=== PATIENT | female | born 1975 | race Caucasian/White ===

== ENCOUNTER 2018-05-21 19:03 | Emergency (ER) | payer MEDICARE, OTHER ==
[~2018-05-21] VITALS: Ht 167.6 cm; Wt 75.0 kg
[~2018-05-21 19:03] MED LIST: CLOZ100 PO; GLYC1TAB11 PO
[2018-05-21] MEDS ORDERED: DiphenhydrAMINE HCL 50 MG/ML VIAL IVP ONE (19:30)
[2018-05-21] MEDS ORDERED: MethylPREDNISolone SOD SUCC 125 MG/2 ML VIAL IVP ONE (19:30)
[2018-05-21] MEDS ORDERED: LORA2TAB2 PO (19:31)
[2018-05-21] MEDS ORDERED: ONDA4 PO (19:31)
[2018-05-21] MEDS ORDERED: HALO5TAB2 PO (19:31)
[2018-05-21] MEDS ORDERED: ALBU8HFA IH (19:31)
[2018-05-21] MEDS ORDERED: RISP2TAB22 PO (19:31)
[2018-05-21] MEDS ORDERED: IBUP-1506 PO (19:31)
[2018-05-21] MEDS ORDERED: LOPE2 PO (19:31)
[2018-05-21] MEDS ORDERED: ZOLP10TA7 PO (19:31)
[2018-05-21] MEDS ORDERED: nicotine TD (19:31)
[2018-05-21] MEDS ORDERED: DSS100 PO (19:31)
[2018-05-21] MEDS ORDERED: ACET-2247 PO (19:31)
[2018-05-21] MEDS ORDERED: CLON0.1T PO (19:31)
[2018-05-21] MEDS ORDERED: MAG30ORA11 PO (19:31)
[2018-05-21] MEDS ORDERED: GUAIF10 PO (19:31)
[2018-05-21 19:49] LABS: BASOPHILS % (AUTO) 0.4 % (0.0-2.0); EOSINOPHILS % (AUTO) 0.4 % (1.0-6.0); HEMOGLOBIN 14.1 g/dL (12.0-16.0); LYMPHOCYTES % (AUTO) 13.3 % (22.0-44.0); MEAN CORPUSCULAR HEMOGLOBIN 29.6 pg (26.0-34.0); MEAN CORPUSCULAR HGB CONC 34.5 G/dL (31.0-37.0); MEAN CORPUSCULAR VOLUME 86 fL (80-100); MONOCYTES # (AUTO) 0.7 K/uL (0.1-1.0); MONOCYTES % (AUTO) 4.9 % (2.0-9.0); NEUTROPHILS # (AUTO) 11.9 K/uL (1.8-7.7); PLATELET COUNT (AUTO) 231 K/uL (150-450); RED BLOOD CELL COUNT(AUTO) 4.78 MIL/uL (4.00-5.20); RED CELL DISTRIBUTION WIDTH 14.1 % (11.5-14.5)
[2018-05-21 19:59] LABS: ANION GAP 9 mmol/L (8-16); CALCIUM, TOTAL 9.3 mg/dL (8.8-10.5); CARBON DIOXIDE 25 mmol/L (22-29); CHLORIDE 102 mmol/L (98-107); CREATININE 0.76 mg/dL (0.60-1.30); GLOMERULAR FILTR. RATE CALC > 60 mL/min (>60); GLUCOSE,RANDOM 136 mg/dL (70-110); SODIUM SERUM 136 mmol/L (136-145); UREA NITROGEN, BLOOD 13 mg/dL (7-18)
[2018-05-21 20:05] LABS: ALANINE AMINOTRANSFERASE 18 U/L (12-78); ALBUMIN 3.4 g/dL (3.4-5.0); ALKALINE PHOSPHATASE 126 U/L (46-116); ASPARTATE AMINOTRANSFERASE 18 U/L (15-37); BILIRUBIN,TOTAL 0.3 mg/dL (0.1-1.0)
[2018-05-21] MEDS ORDERED: FAMOTIDINE 40 MG in SODIUM CHLORIDE 0.9% 100 ML IV ONE (20:15)
[2018-05-21] MEDS ORDERED: DiphenhydrAMINE HCL 25 MG CAPSULE PO ONE (22:00)
[2018-05-21 22:15] VITALS: BP 148/84
[2018-05-26] MEDS ORDERED: ARIP10TA8 PO (10:38)
[2018-05-26] MEDS ORDERED: SIMV-259 PO (10:40)
== END 2018-05-21 22:51 | disposition home or self-care (01) ==
LOC: EMS 19:05
DX: T78.3XXA Angioneurotic edema, initial encounter (principal); T43.595A Adverse effect of other antipsychotics and neuroleptics, initial encounter; T43.4X5A Adverse effect of butyrophenone and thiothixene neuroleptics, initial encounter; J45.909 Unspecified asthma, uncomplicated; F32.9 Major depressive disorder, single episode, unspecified; F20.9 Schizophrenia, unspecified; Z88.0 Allergy status to penicillin; Z88.2 Allergy status to sulfonamides; Z88.5 Allergy status to narcotic agent; Z79.899 Other long term (current) drug therapy; Y92.89 Other specified places as the place of occurrence of the external cause
CPT/HCPCS: 36415; 80053; 85025; 96365; 96375; 99285; J1200; J2930; J3490; J7050

== ENCOUNTER 2018-05-31 11:57 | Inpatient (IN) | payer MEDICARE, MEDICAID ==
[~2018-05-31] VITALS: Ht 157.5 cm; Wt 79.0 kg
[~2018-05-31 11:57] MED LIST changes: +ARIP10TA8 PO; -CLOZ100 PO; -GLYC1TAB11 PO; +SIMV-259 PO
[2018-05-31 12:15] LABS: GLUCOSE,POINT OF CARE 138 MG/DL (70-110)
[2018-05-31 13:43] LABS: EOSINOPHILS % (AUTO) 0.6 % (1.0-6.0); HEMOGLOBIN 13.3 g/dL (12.0-16.0); LYMPHOCYTES % (AUTO) 28.5 % (22.0-44.0); MEAN CORPUSCULAR HEMOGLOBIN 29.9 pg (26.0-34.0); MEAN CORPUSCULAR HGB CONC 34.1 G/dL (31.0-37.0); MEAN CORPUSCULAR VOLUME 88 fL (80-100); MONOCYTES # (AUTO) 0.9 K/uL (0.1-1.0); MONOCYTES % (AUTO) 8.6 % (2.0-9.0); NEUTROPHILS # (AUTO) 6.4 K/uL (1.8-7.7); NEUTROPHILS % (AUTO) 61.3 % (40.0-70.0); PLATELET COUNT (AUTO) 304 K/uL (150-450); RED BLOOD CELL COUNT(AUTO) 4.44 MIL/uL (4.00-5.20); RED CELL DISTRIBUTION WIDTH 14.4 % (11.5-14.5)
[2018-05-31 13:44] LABS: APPEARANCE,URINE CLEAR (CLEAR); BILIRUBIN,URINE NEGATIVE (NEGATIVE); GLUCOSE, URINE (UA) NEGATIVE (NEGATIVE); KETONES,URINE NEGATIVE (NEGATIVE); LEUKOCYTE ESTERASE ,URINE NEGATIVE (NEGATIVE); NITRATE,URINE NEGATIVE (NEGATIVE); OCCULT BLOOD,URINE SMALL (NEGATIVE); PH,URINE 5.5 (5.0-8.0); PROTEIN,URINE NEGATIVE (NEGATIVE); UROBILINOGEN,URINE 0.2 mg/dL (<=1.0)
[2018-05-31 13:50] LABS: AMPHET/METH SCREEN,URINE NEGATIVE (NEGATIVE); BARBITURATE SCREEN, URINE NEGATIVE (NEGATIVE); BENZODIAZEPINES SCREEN,URINE NEGATIVE (NEGATIVE); CANNABINOID SCREEN,URINE NEGATIVE (NEGATIVE); COCAINE SCREEN,URINE NEGATIVE (NEGATIVE); METHADONE SCREEN, URINE NEGATIVE (NEGATIVE); OPIATE SCREEN,URINE NEGATIVE (NEGATIVE)
[2018-05-31 13:56] LABS: BACTERIA,URINE None Seen /HPF (None Seen); PHENCYCLIDINE SCREEN,URINE NEGATIVE (NEGATIVE); SQUAMOUS EPITHELIAL CELL,UR Rare /LPF (None Seen); WBC,URINE None Seen /HPF (0-5)
[2018-05-31 13:59] LABS: ANION GAP 10 mmol/L (8-16); CALCIUM, TOTAL 9.1 mg/dL (8.8-10.5); CARBON DIOXIDE 25 mmol/L (22-29); CHLORIDE 107 mmol/L (98-107); CREATININE 0.54 mg/dL (0.60-1.30); GLOMERULAR FILTR. RATE CALC > 60 mL/min (>60); GLUCOSE,RANDOM 80 mg/dL (70-110); POTASSIUM 3.4 mmol/L (3.5-5.1); SODIUM SERUM 142 mmol/L (136-145); UREA NITROGEN, BLOOD 14 mg/dL (7-18)
[2018-05-31 14:12] LABS: ACETAMINOPHEN < 2 mcg/mL (10-30); ALANINE AMINOTRANSFERASE 19 U/L (12-78); ALBUMIN 3.5 g/dL (3.4-5.0); ALKALINE PHOSPHATASE 113 U/L (46-116); ASPARTATE AMINOTRANSFERASE 16 U/L (15-37); BILIRUBIN,TOTAL 0.2 mg/dL (0.1-1.0); HCG,QUANTITATIVE 8 mIU/mL (0-6); TOTAL PROTEIN, SERUM 7.8 g/dL (6.4-8.2)
[2018-05-31] MEDS ORDERED: LORazepam 2 MG TABLET PO PRN (15:15)
[2018-05-31] MEDS ORDERED: HALOPERIDOL 5 MG TABLET PO PRN (15:15)
[2018-05-31] MEDS ORDERED: ZOLPIDEM TARTRATE 10 MG TABLET PO PRN (15:15)
[2018-05-31] MEDS ORDERED: QUEtiapine FUMARATE 100 MG TABLET PO PRN (16:15)
[2018-05-31] MEDS ORDERED: ACETAMINOPHEN 325 MG TABLET PO ONE (16:30)
[2018-05-31] MEDS: LORazepam 2 MG TABLET PO PRN (16:37)
[2018-05-31 20:45] VITALS: BP 126/90
[2018-05-31] MEDS ORDERED: PNEUMOCOCCAL VACCINE POLYVALENT 0.5 ML VIAL [PPSV23] IM ONE (21:00)
[2018-06-01 05:05] VITALS: BP 123/95
[2018-06-01] MEDS: LORazepam 2 MG TABLET PO PRN ×2 (05:10→13:36)
[2018-06-01 08:18] VITALS: BP 125/88
[2018-06-01] MEDS ORDERED: PROMETHAZINE HCL 25 MG TABLET PO PRN (12:45)
[2018-06-01] MEDS ORDERED: MAG HYDROX/AL HYDROX/SIMETH ES 30 ML SUSPENSION UDCUP PO PRN (12:45)
[2018-06-01] MEDS ORDERED: MAGNESIUM HYDROXIDE SUSPENSION 30 ML UDCUP PO PRN (12:45)
[2018-06-01] MEDS ORDERED: LOPERAMIDE HCL 2 MG CAPSULE PO PRN (12:45)
[2018-06-01] MEDS ORDERED: HydrOXYzine PAMOATE 50 MG CAPSULE PO PRN (12:45)
[2018-06-01 13:37] VITALS: BP 122/84
[2018-06-01] MEDS: ACETAMINOPHEN 325 MG TABLET PO PRN (13:37)
[2018-06-01] MEDS ORDERED: TUBERCULIN, PURIFIED PROTEIN DERIVATIVE 5 TU/0.1 ML SYG ID ONE (14:45)
[2018-06-01 16:09] VITALS: BP 124/89
[2018-06-01] MEDS: THIAMINE HCL 100 MG TABLET PO SCH (16:31)
[2018-06-01] MEDS: DIVALPROEX SODIUM 500 MG ER TABLET PO SCH (21:01)
[2018-06-02 00:03] VITALS: BP 122/87
[2018-06-02] MEDS: LORazepam 2 MG TABLET PO PRN (00:06)
[2018-06-02] MEDS: ACETAMINOPHEN 325 MG TABLET PO PRN ×2 (00:07→18:15)
[2018-06-02] MEDS: FOLIC ACID 1 MG TABLET PO SCH (08:19)
[2018-06-02] MEDS: THIAMINE HCL 100 MG TABLET PO SCH ×2 (08:19→16:41)
[2018-06-02] MEDS: MULTIVITAMINS WITH MINERALS, THERAPEUTIC TABLET PO SCH (08:19)
[2018-06-02] MEDS: ARIPiprazole 10 MG TABLET PO SCH (08:19)
[2018-06-02 08:27] VITALS: BP 122/86
[2018-06-02 09:33] LABS: HEMOGLOBIN A1C 5.5 % (4.5-6.2)
[2018-06-02 10:06] LABS: FREE T4 (FREE THYROXINE) 1.46 ng/dL (0.76-1.46); HCG,QUANTITATIVE < 1 mIU/mL (0-6); POTASSIUM 3.7 mmol/L (3.5-5.1); THYROID STIMULATING HORMONE 1.38 uIU/mL (0.36-3.74)
[2018-06-02] MEDS: AZITHROMYCIN 250 MG TABLET PO SCH (10:54)
[2018-06-02 16:14] VITALS: BP 125/94
[2018-06-02] MEDS: GABAPENTIN 100 MG CAPSULE PO SCH (16:54)
[2018-06-02] MEDS: DIVALPROEX SODIUM 500 MG ER TABLET PO SCH (20:34)
[2018-06-03 00:01] VITALS: BP 111/77
[2018-06-03] MEDS: LORazepam 2 MG TABLET PO PRN ×3 (00:12→11:49)
[2018-06-03] MEDS: ZOLPIDEM TARTRATE 10 MG TABLET PO PRN (03:13)
[2018-06-03] MEDS: ACETAMINOPHEN 325 MG TABLET PO PRN ×2 (05:44→16:01)
[2018-06-03 05:47] VITALS: BP 108/89
[2018-06-03] MEDS: AZITHROMYCIN 250 MG TABLET PO SCH (08:15)
[2018-06-03] MEDS: GABAPENTIN 100 MG CAPSULE PO SCH ×3 (08:15→16:35)
[2018-06-03] MEDS: FOLIC ACID 1 MG TABLET PO SCH (08:15)
[2018-06-03] MEDS: THIAMINE HCL 100 MG TABLET PO SCH ×2 (08:15→16:35)
[2018-06-03] MEDS: MULTIVITAMINS WITH MINERALS, THERAPEUTIC TABLET PO SCH (08:15)
[2018-06-03] MEDS: ARIPiprazole 10 MG TABLET PO SCH (08:15)
[2018-06-03 08:18] VITALS: BP 116/70
[2018-06-03 16:21] VITALS: BP 121/86
[2018-06-03] MEDS: NICOTINE 21 MG/24 HOUR PATCH TD SCH (17:00)
[2018-06-03] MEDS: DIVALPROEX SODIUM 500 MG ER TABLET PO SCH (20:44)
[2018-06-04 00:33] VITALS: BP 118/74
[2018-06-04] MEDS: LORazepam 2 MG TABLET PO PRN (01:17)
[2018-06-04] MEDS: MULTIVITAMINS WITH MINERALS, THERAPEUTIC TABLET PO SCH (08:10)
[2018-06-04] MEDS: ARIPiprazole 10 MG TABLET PO SCH (08:10)
[2018-06-04] MEDS: FOLIC ACID 1 MG TABLET PO SCH (08:10)
[2018-06-04] MEDS: NICOTINE 21 MG/24 HOUR PATCH TD SCH (08:10)
[2018-06-04] MEDS: AZITHROMYCIN 250 MG TABLET PO SCH (08:10)
[2018-06-04] MEDS: THIAMINE HCL 100 MG TABLET PO SCH ×2 (08:10→16:48)
[2018-06-04] MEDS: GABAPENTIN 100 MG CAPSULE PO SCH ×3 (08:10→16:48)
[2018-06-04 08:45] VITALS: BP 116/79
[2018-06-04 16:19] VITALS: BP 114/86
[2018-06-04] MEDS: DIVALPROEX SODIUM 500 MG ER TABLET PO SCH (20:40)
[2018-06-04] MEDS: ZOLPIDEM TARTRATE 10 MG TABLET PO PRN (22:17)
[2018-06-05] MEDS: ACETAMINOPHEN 325 MG TABLET PO PRN (01:34)
[2018-06-05] MEDS: LORazepam 2 MG TABLET PO PRN (01:34)
[2018-06-05 03:11] VITALS: BP 118/78
[2018-06-05] MEDS: GABAPENTIN 100 MG CAPSULE PO SCH ×3 (08:15→16:14)
[2018-06-05] MEDS: AZITHROMYCIN 250 MG TABLET PO SCH (08:15)
[2018-06-05] MEDS: MULTIVITAMINS WITH MINERALS, THERAPEUTIC TABLET PO SCH (08:15)
[2018-06-05] MEDS: FOLIC ACID 1 MG TABLET PO SCH (08:15)
[2018-06-05] MEDS: THIAMINE HCL 100 MG TABLET PO SCH ×2 (08:15→16:14)
[2018-06-05 08:16] VITALS: BP 125/75
[2018-06-05] MEDS: ARIPiprazole 10 MG TABLET PO SCH (08:16)
[2018-06-05] MEDS: NICOTINE 21 MG/24 HOUR PATCH TD SCH (08:18)
[2018-06-05 16:07] VITALS: BP 117/90
[2018-06-05] MEDS: DIVALPROEX SODIUM 500 MG ER TABLET PO SCH (20:10)
[2018-06-06 02:00] VITALS: BP 118/88
[2018-06-06] MEDS: ACETAMINOPHEN 325 MG TABLET PO PRN (02:04)
[2018-06-06 05:55] VITALS: BP 122/86
[2018-06-06] MEDS: THIAMINE HCL 100 MG TABLET PO SCH ×2 (08:10→16:40)
[2018-06-06] MEDS: NICOTINE 21 MG/24 HOUR PATCH TD SCH (08:10)
[2018-06-06] MEDS: ARIPiprazole 10 MG TABLET PO SCH (08:10)
[2018-06-06] MEDS: AZITHROMYCIN 250 MG TABLET PO SCH (08:10)
[2018-06-06] MEDS: MULTIVITAMINS WITH MINERALS, THERAPEUTIC TABLET PO SCH (08:10)
[2018-06-06] MEDS: FOLIC ACID 1 MG TABLET PO SCH (08:10)
[2018-06-06] MEDS: GABAPENTIN 100 MG CAPSULE PO SCH ×3 (08:10→16:40)
[2018-06-06 08:22] VITALS: BP 117/77
[2018-06-06] MEDS: GuaiFENesin/D-METHORPHAN [SUGAR-FREE] 200-20MG/10 ML SYRUP UDCUP PO PRN (08:31)
[2018-06-06 16:26] VITALS: BP 140/84
[2018-06-06] MEDS: DIVALPROEX SODIUM 500 MG ER TABLET PO SCH (20:41)
[2018-06-06] MEDS: ZOLPIDEM TARTRATE 10 MG TABLET PO PRN (23:56)
[2018-06-07 00:20] VITALS: BP 118/90
[2018-06-07] MEDS: ACETAMINOPHEN 325 MG TABLET PO PRN ×2 (00:20→07:02)
[2018-06-07] MEDS: LORazepam 2 MG TABLET PO PRN (03:54)
[2018-06-07 08:33] VITALS: BP 122/85
[2018-06-07] MEDS: FOLIC ACID 1 MG TABLET PO SCH (08:52)
[2018-06-07] MEDS: ARIPiprazole 15 MG TABLET PO SCH (08:52)
[2018-06-07] MEDS: MULTIVITAMINS WITH MINERALS, THERAPEUTIC TABLET PO SCH (08:52)
[2018-06-07] MEDS: THIAMINE HCL 100 MG TABLET PO SCH ×2 (08:52→16:42)
[2018-06-07] MEDS: NICOTINE 21 MG/24 HOUR PATCH TD SCH (08:54)
[2018-06-07] MEDS: GABAPENTIN 100 MG CAPSULE PO SCH ×3 (09:24→16:45)
[2018-06-07 16:29] VITALS: BP 108/78
[2018-06-07] MEDS: DIVALPROEX SODIUM 500 MG ER TABLET PO SCH (20:40)
[2018-06-08 00:30] VITALS: BP 110/80
[2018-06-08] MEDS: ZOLPIDEM TARTRATE 10 MG TABLET PO PRN (03:07)
[2018-06-08 06:58] VITALS: BP 112/83
[2018-06-08] MEDS: ACETAMINOPHEN 325 MG TABLET PO PRN (06:58)
[2018-06-08] MEDS: THIAMINE HCL 100 MG TABLET PO SCH ×2 (08:36→16:31)
[2018-06-08] MEDS: ARIPiprazole 15 MG TABLET PO SCH (08:36)
[2018-06-08] MEDS: MULTIVITAMINS WITH MINERALS, THERAPEUTIC TABLET PO SCH (08:36)
[2018-06-08] MEDS: GABAPENTIN 100 MG CAPSULE PO SCH ×3 (08:36→16:32)
[2018-06-08] MEDS: FOLIC ACID 1 MG TABLET PO SCH (08:36)
[2018-06-08] MEDS: NICOTINE 21 MG/24 HOUR PATCH TD SCH (08:38)
[2018-06-08 08:44] VITALS: BP 119/75
[2018-06-08] MEDS: LORazepam 2 MG TABLET PO PRN (10:27)
[2018-06-08 16:17] VITALS: BP 117/77
[2018-06-08] MEDS: DIVALPROEX SODIUM 500 MG ER TABLET PO SCH (20:32)
[2018-06-09 00:20] VITALS: BP 120/90
[2018-06-09] MEDS: ACETAMINOPHEN 325 MG TABLET PO PRN ×2 (00:53→05:24)
[2018-06-09] MEDS: ZOLPIDEM TARTRATE 10 MG TABLET PO PRN (01:26)
[2018-06-09] MEDS: GABAPENTIN 100 MG CAPSULE PO SCH ×3 (08:22→16:29)
[2018-06-09] MEDS: ARIPiprazole 15 MG TABLET PO SCH (08:22)
[2018-06-09] MEDS: THIAMINE HCL 100 MG TABLET PO SCH ×2 (08:22→16:30)
[2018-06-09] MEDS: FOLIC ACID 1 MG TABLET PO SCH (08:22)
[2018-06-09] MEDS: MULTIVITAMINS WITH MINERALS, THERAPEUTIC TABLET PO SCH (08:22)
[2018-06-09] MEDS: NICOTINE 21 MG/24 HOUR PATCH TD SCH (08:23)
[2018-06-09] MEDS: LORazepam 2 MG TABLET PO PRN ×2 (08:23→16:43)
[2018-06-09 08:25] LABS: BAND NEUTROPHILS % (MANUAL) 0 % (0-5)
[2018-06-09 08:33] VITALS: BP 113/75
[2018-06-09 08:46] LABS: HEMOGLOBIN 13.3 g/dL (12.0-16.0); MEAN CORPUSCULAR HEMOGLOBIN 29.7 pg (26.0-34.0); MEAN CORPUSCULAR VOLUME 87 fL (80-100); PLATELET COUNT (AUTO) 259 K/uL (150-450); RED BLOOD CELL COUNT(AUTO) 4.47 MIL/uL (4.00-5.20); RED CELL DISTRIBUTION WIDTH 14.1 % (11.5-14.5)
[2018-06-09 09:07] LABS: % IRON SATURATION 14.7 % (22-44); IRON, SERUM 53 mcg/dL (50-175); TOTAL IRON BINDING CAPACITY 359 mcg/dL (250-450)
[2018-06-09 09:09] LABS: VALPROIC ACID 60 mcg/mL (50-100)
[2018-06-09 09:14] LABS: ANION GAP 7 mmol/L (8-16); CALCIUM, TOTAL 8.9 mg/dL (8.8-10.5); CARBON DIOXIDE 29 mmol/L (22-29); CHLORIDE 101 mmol/L (98-107); CREATININE 0.75 mg/dL (0.60-1.30); GLOMERULAR FILTR. RATE CALC > 60 mL/min (>60); GLUCOSE,RANDOM 108 mg/dL (70-110); PHOSPHORUS 3.6 mg/dL (2.5-4.9); POTASSIUM 4.3 mmol/L (3.5-5.1); SODIUM SERUM 137 mmol/L (136-145); UREA NITROGEN, BLOOD 19 mg/dL (7-18)
[2018-06-09 09:46] LABS: LYMPHOCYTES % (MANUAL) 48 % (22-44); MONOCYTES % (MANUAL) 13 % (2-9); SEGMENTED NEUTROPHILS % 39 % (40-70)
[2018-06-09] MEDS ORDERED: DIVA500T52 PO (12:34)
[2018-06-09] MEDS ORDERED: ARIP15TA2 PO (12:34)
[2018-06-09] MEDS ORDERED: GABA-529 PO (12:34)
[2018-06-09 16:21] VITALS: BP 117/84
[2018-06-09] MEDS: DIVALPROEX SODIUM 500 MG ER TABLET PO SCH (20:16)
[2018-06-10] VITALS: BP 116/76
[2018-06-10] MEDS: ACETAMINOPHEN 325 MG TABLET PO PRN ×2 (00:05→08:03)
[2018-06-10] MEDS: LORazepam 2 MG TABLET PO PRN ×3 (00:05→16:14)
[2018-06-10 08:02] VITALS: BP 106/78
[2018-06-10] MEDS: THIAMINE HCL 100 MG TABLET PO SCH ×2 (08:02→16:14)
[2018-06-10] MEDS: GABAPENTIN 100 MG CAPSULE PO SCH ×3 (08:02→16:14)
[2018-06-10] MEDS: FOLIC ACID 1 MG TABLET PO SCH (08:03)
[2018-06-10] MEDS: NICOTINE 21 MG/24 HOUR PATCH TD SCH (08:03)
[2018-06-10] MEDS: MULTIVITAMINS WITH MINERALS, THERAPEUTIC TABLET PO SCH (08:03)
[2018-06-10] MEDS: ARIPiprazole 15 MG TABLET PO SCH (08:03)
[2018-06-10 16:17] VITALS: BP 111/76
[2018-06-10] MEDS: DIVALPROEX SODIUM 500 MG ER TABLET PO SCH (20:12)
[2018-06-11 02:04] VITALS: BP 118/81
[2018-06-11] MEDS: LORazepam 2 MG TABLET PO PRN ×3 (02:07→14:02)
[2018-06-11] MEDS: ACETAMINOPHEN 325 MG TABLET PO PRN ×4 (02:07→20:19)
[2018-06-11] MEDS: ZOLPIDEM TARTRATE 10 MG TABLET PO PRN (02:57)
[2018-06-11 06:25] VITALS: BP 116/78
[2018-06-11] MEDS: ARIPiprazole 15 MG TABLET PO SCH (08:10)
[2018-06-11] MEDS: NICOTINE 21 MG/24 HOUR PATCH TD SCH (08:10)
[2018-06-11] MEDS: FOLIC ACID 1 MG TABLET PO SCH (08:10)
[2018-06-11] MEDS: MULTIVITAMINS WITH MINERALS, THERAPEUTIC TABLET PO SCH (08:10)
[2018-06-11] MEDS: GABAPENTIN 100 MG CAPSULE PO SCH ×3 (08:10→17:04)
[2018-06-11] MEDS: THIAMINE HCL 100 MG TABLET PO SCH (08:10)
[2018-06-11 08:19] VITALS: BP 116/72
[2018-06-11 14:02] VITALS: BP 114/68
[2018-06-11 16:10] VITALS: BP 112/67
[2018-06-11] MEDS: DIVALPROEX SODIUM 500 MG ER TABLET PO SCH (20:34)
[2018-06-12 00:04] VITALS: BP 119/75
[2018-06-12] MEDS: ZOLPIDEM TARTRATE 10 MG TABLET PO PRN ×2 (00:08→21:00)
[2018-06-12] MEDS: ACETAMINOPHEN 325 MG TABLET PO PRN ×3 (00:23→16:12)
[2018-06-12] MEDS: LORazepam 2 MG TABLET PO PRN ×2 (04:02→19:31)
[2018-06-12] MEDS: NICOTINE 21 MG/24 HOUR PATCH TD SCH (08:22)
[2018-06-12] MEDS: MULTIVITAMINS WITH MINERALS, THERAPEUTIC TABLET PO SCH (08:22)
[2018-06-12] MEDS: GABAPENTIN 100 MG CAPSULE PO SCH ×3 (08:22→16:33)
[2018-06-12] MEDS: ARIPiprazole 15 MG TABLET PO SCH (08:22)
[2018-06-12 08:34] VITALS: BP 118/76
[2018-06-12 16:06] VITALS: BP 118/90
[2018-06-12 20:20] LABS: GLUCOMETER DEV NAME(LOC) BV2S.; GLUCOSE,POINT OF CARE 112 MG/DL (70-110)
[2018-06-12] MEDS: DIVALPROEX SODIUM 500 MG ER TABLET PO SCH (20:30)
[2018-06-13 00:17] VITALS: BP 120/78
[2018-06-13] MEDS: ACETAMINOPHEN 325 MG TABLET PO PRN (03:38)
[2018-06-13 08:29] VITALS: BP 119/80
[2018-06-13] MEDS: ARIPiprazole 15 MG TABLET PO SCH (08:33)
[2018-06-13] MEDS: GABAPENTIN 100 MG CAPSULE PO SCH ×3 (08:33→16:56)
[2018-06-13] MEDS: MULTIVITAMINS WITH MINERALS, THERAPEUTIC TABLET PO SCH (08:33)
[2018-06-13] MEDS: NICOTINE 21 MG/24 HOUR PATCH TD SCH (08:34)
[2018-06-13 08:55] LABS: CHOL/HDL RATIO 3.8 (3.9-5.7)
[2018-06-13 16:08] VITALS: BP 119/71
[2018-06-13] MEDS: LORazepam 2 MG TABLET PO PRN (16:56)
[2018-06-13] MEDS: ARIPiprazole 10 MG TABLET PO SCH (20:28)
[2018-06-13] MEDS: ZOLPIDEM TARTRATE 10 MG TABLET PO PRN (20:28)
[2018-06-13] MEDS: DIVALPROEX SODIUM 500 MG ER TABLET PO SCH (20:28)
[2018-06-14 01:29] VITALS: BP 121/78
[2018-06-14] MEDS: ACETAMINOPHEN 325 MG TABLET PO PRN ×3 (01:53→19:02)
[2018-06-14] MEDS: LORazepam 2 MG TABLET PO PRN ×2 (02:25→10:49)
[2018-06-14 07:52] VITALS: BP 109/70
[2018-06-14] MEDS: GABAPENTIN 100 MG CAPSULE PO SCH ×3 (08:01→16:32)
[2018-06-14] MEDS: MULTIVITAMINS WITH MINERALS, THERAPEUTIC TABLET PO SCH (08:01)
[2018-06-14] MEDS: NICOTINE 21 MG/24 HOUR PATCH TD SCH (08:01)
[2018-06-14 09:18] VITALS: BP 109/70
[2018-06-14 10:49] VITALS: BP 112/74
[2018-06-14 16:07] VITALS: BP 112/76
[2018-06-14] MEDS: DIVALPROEX SODIUM 500 MG ER TABLET PO SCH (20:40)
[2018-06-14] MEDS: ARIPiprazole 10 MG TABLET PO SCH (20:40)
[2018-06-14] MEDS: ZOLPIDEM TARTRATE 10 MG TABLET PO PRN (21:00)
[2018-06-15] VITALS: BP 110/68
[2018-06-15] MEDS: ACETAMINOPHEN 325 MG TABLET PO PRN (01:39)
[2018-06-15] MEDS: LORazepam 2 MG TABLET PO PRN (02:16)
[2018-06-15 08:10] VITALS: BP 110/68
[2018-06-15] MEDS: MULTIVITAMINS WITH MINERALS, THERAPEUTIC TABLET PO SCH (08:17)
[2018-06-15] MEDS: GABAPENTIN 100 MG CAPSULE PO SCH ×3 (08:17→16:54)
[2018-06-15] MEDS: NICOTINE 21 MG/24 HOUR PATCH TD SCH (09:14)
[2018-06-15] MEDS: ARIPiprazole LAUROXIL ER SUSPENSION 662 MG/2.4 ML SYRINGE IM SCH (09:14)
[2018-06-15 16:24] VITALS: BP 104/76
[2018-06-15] MEDS: DIVALPROEX SODIUM 500 MG ER TABLET PO SCH (21:12)
[2018-06-15] MEDS: ARIPiprazole 10 MG TABLET PO SCH (21:12)
[2018-06-16 01:25] VITALS: BP 106/69
[2018-06-16] MEDS: ACETAMINOPHEN 325 MG TABLET PO PRN ×2 (01:37→05:39)
[2018-06-16 05:29] VITALS: BP 113/81
[2018-06-16] MEDS: GABAPENTIN 100 MG CAPSULE PO SCH ×3 (08:03→16:36)
[2018-06-16] MEDS: MULTIVITAMINS WITH MINERALS, THERAPEUTIC TABLET PO SCH (08:03)
[2018-06-16] MEDS: NICOTINE 21 MG/24 HOUR PATCH TD SCH (08:04)
[2018-06-16 08:09] VITALS: BP 110/74
[2018-06-16 16:16] VITALS: BP 117/79
[2018-06-16] MEDS: DIVALPROEX SODIUM 500 MG ER TABLET PO SCH (20:35)
[2018-06-16] MEDS: ARIPiprazole 10 MG TABLET PO SCH (20:35)
[2018-06-17 05:52] VITALS: BP 122/86
[2018-06-17] MEDS: GABAPENTIN 100 MG CAPSULE PO SCH ×3 (08:10→16:35)
[2018-06-17] MEDS: MULTIVITAMINS WITH MINERALS, THERAPEUTIC TABLET PO SCH (08:10)
[2018-06-17] MEDS: NICOTINE 21 MG/24 HOUR PATCH TD SCH (08:10)
[2018-06-17 10:12] VITALS: BP 117/79
[2018-06-17] MEDS: ACETAMINOPHEN 325 MG TABLET PO PRN ×2 (10:12→16:25)
[2018-06-17 16:25] VITALS: BP 122/77
[2018-06-17] MEDS: DIVALPROEX SODIUM 500 MG ER TABLET PO SCH (20:37)
[2018-06-17] MEDS: ARIPiprazole 10 MG TABLET PO SCH (20:37)
[2018-06-17] MEDS: ZOLPIDEM TARTRATE 10 MG TABLET PO PRN (22:46)
[2018-06-18 00:55] VITALS: BP 140/86
[2018-06-18] MEDS: ACETAMINOPHEN 325 MG TABLET PO PRN ×3 (01:03→16:11)
[2018-06-18] MEDS: GABAPENTIN 100 MG CAPSULE PO SCH ×3 (08:02→16:30)
[2018-06-18] MEDS: MULTIVITAMINS WITH MINERALS, THERAPEUTIC TABLET PO SCH (08:02)
[2018-06-18] MEDS: NICOTINE 21 MG/24 HOUR PATCH TD SCH (08:03)
[2018-06-18 08:22] VITALS: BP 113/71
[2018-06-18] MEDS: LORazepam 2 MG TABLET PO PRN ×2 (10:44→16:32)
[2018-06-18 16:11] VITALS: BP 119/76
[2018-06-18] MEDS: DIVALPROEX SODIUM 500 MG ER TABLET PO SCH (20:25)
[2018-06-18] MEDS: ARIPiprazole 10 MG TABLET PO SCH (20:25)
[2018-06-19 02:55] VITALS: BP 118/80
[2018-06-19] MEDS: LORazepam 2 MG TABLET PO PRN ×2 (02:59→21:52)
[2018-06-19] MEDS: ACETAMINOPHEN 325 MG TABLET PO PRN ×2 (02:59→12:21)
[2018-06-19] MEDS: NICOTINE 21 MG/24 HOUR PATCH TD SCH (08:07)
[2018-06-19] MEDS: MULTIVITAMINS WITH MINERALS, THERAPEUTIC TABLET PO SCH (08:07)
[2018-06-19] MEDS: GABAPENTIN 100 MG CAPSULE PO SCH ×3 (08:07→16:09)
[2018-06-19 08:26] VITALS: BP 121/73
[2018-06-19 12:21] VITALS: BP 118/74
[2018-06-19 16:05] VITALS: BP 122/79
[2018-06-19] MEDS: DIVALPROEX SODIUM 500 MG ER TABLET PO SCH (20:08)
[2018-06-19] MEDS: ARIPiprazole 10 MG TABLET PO SCH (20:08)
[2018-06-20 02:09] VITALS: BP 125/85
[2018-06-20] MEDS: ACETAMINOPHEN 325 MG TABLET PO PRN (02:14)
[2018-06-20 08:14] VITALS: BP 119/79
[2018-06-20] MEDS: GABAPENTIN 100 MG CAPSULE PO SCH ×3 (08:29→17:23)
[2018-06-20] MEDS: MULTIVITAMINS WITH MINERALS, THERAPEUTIC TABLET PO SCH (08:29)
[2018-06-20] MEDS: NICOTINE 21 MG/24 HOUR PATCH TD SCH (08:31)
[2018-06-20 16:15] VITALS: BP 117/84
[2018-06-20] MEDS: LORazepam 2 MG TABLET PO PRN (19:05)
[2018-06-20] MEDS: DIVALPROEX SODIUM 500 MG ER TABLET PO SCH (21:01)
[2018-06-20] MEDS: ARIPiprazole 10 MG TABLET PO SCH (21:01)
[2018-06-21 01:39] VITALS: BP 111/68
[2018-06-21] MEDS: ACETAMINOPHEN 325 MG TABLET PO PRN (01:43)
[2018-06-21] MEDS: ZOLPIDEM TARTRATE 10 MG TABLET PO PRN (02:28)
[2018-06-21] MEDS: LORazepam 2 MG TABLET PO PRN ×2 (02:28→16:37)
[2018-06-21 08:17] VITALS: BP 105/66
[2018-06-21] MEDS: MULTIVITAMINS WITH MINERALS, THERAPEUTIC TABLET PO SCH (08:29)
[2018-06-21] MEDS: GABAPENTIN 100 MG CAPSULE PO SCH ×3 (08:29→16:12)
[2018-06-21] MEDS: NICOTINE 21 MG/24 HOUR PATCH TD SCH (08:30)
[2018-06-21 16:12] VITALS: BP 116/72
[2018-06-21] MEDS: ARIPiprazole 10 MG TABLET PO SCH (20:11)
[2018-06-21] MEDS: DIVALPROEX SODIUM 500 MG ER TABLET PO SCH (20:11)
[2018-06-22 01:15] VITALS: BP 107/89
[2018-06-22] MEDS: ACETAMINOPHEN 325 MG TABLET PO PRN ×2 (01:15→19:26)
[2018-06-22] MEDS: LORazepam 2 MG TABLET PO PRN ×2 (04:38→12:15)
[2018-06-22] MEDS: NICOTINE 21 MG/24 HOUR PATCH TD SCH (08:12)
[2018-06-22] MEDS: GABAPENTIN 100 MG CAPSULE PO SCH ×3 (08:12→16:03)
[2018-06-22] MEDS: MULTIVITAMINS WITH MINERALS, THERAPEUTIC TABLET PO SCH (08:12)
[2018-06-22 09:31] VITALS: BP 110/72
[2018-06-22 16:27] VITALS: BP 119/78
[2018-06-22 19:27] VITALS: BP 120/83
[2018-06-22] MEDS: DIVALPROEX SODIUM 500 MG ER TABLET PO SCH (20:41)
[2018-06-22] MEDS: ARIPiprazole 10 MG TABLET PO SCH (20:41)
[2018-06-22] MEDS: ZOLPIDEM TARTRATE 10 MG TABLET PO PRN (20:54)
[2018-06-23] MEDS: ACETAMINOPHEN 325 MG TABLET PO PRN ×2 (01:47→10:05)
[2018-06-23 01:48] VITALS: BP 113/70
[2018-06-23 04:07] VITALS: BP 115/77
[2018-06-23] MEDS: LORazepam 2 MG TABLET PO PRN (04:12)
[2018-06-23] MEDS: MULTIVITAMINS WITH MINERALS, THERAPEUTIC TABLET PO SCH (08:11)
[2018-06-23] MEDS: GABAPENTIN 100 MG CAPSULE PO SCH ×3 (08:11→16:26)
[2018-06-23] MEDS: NICOTINE 21 MG/24 HOUR PATCH TD SCH (08:12)
[2018-06-23 08:31] VITALS: BP 117/71
[2018-06-23 10:05] VITALS: BP 114/74
[2018-06-23 16:14] VITALS: BP 114/75
[2018-06-23] MEDS: DIVALPROEX SODIUM 500 MG ER TABLET PO SCH (21:39)
[2018-06-23] MEDS: ARIPiprazole 10 MG TABLET PO SCH (21:39)
[2018-06-24 02:20] VITALS: BP 123/74
[2018-06-24] MEDS: DIAZEPAM 5 MG TABLET PO PRN ×2 (02:25→16:23)
[2018-06-24] MEDS: ACETAMINOPHEN 325 MG TABLET PO PRN ×2 (02:26→13:23)
[2018-06-24] MEDS: MULTIVITAMINS WITH MINERALS, THERAPEUTIC TABLET PO SCH (08:03)
[2018-06-24] MEDS: GABAPENTIN 100 MG CAPSULE PO SCH ×3 (08:03→16:22)
[2018-06-24] MEDS: NICOTINE 21 MG/24 HOUR PATCH TD SCH (08:05)
[2018-06-24 08:24] VITALS: BP 111/66
[2018-06-24 13:23] VITALS: BP 112/70
[2018-06-24 16:27] VITALS: BP 120/81
[2018-06-24] MEDS: ARIPiprazole 10 MG TABLET PO SCH (20:20)
[2018-06-24] MEDS: DIVALPROEX SODIUM 500 MG ER TABLET PO SCH (20:20)
[2018-06-24] MEDS: ZOLPIDEM TARTRATE 10 MG TABLET PO PRN (21:43)
[2018-06-25 01:02] VITALS: BP 113/75
[2018-06-25] MEDS: NICOTINE 21 MG/24 HOUR PATCH TD SCH (08:09)
[2018-06-25] MEDS: MULTIVITAMINS WITH MINERALS, THERAPEUTIC TABLET PO SCH (08:10)
[2018-06-25] MEDS: GABAPENTIN 100 MG CAPSULE PO SCH ×3 (08:10→16:22)
[2018-06-25 08:16] VITALS: BP 113/69
[2018-06-25 16:13] VITALS: BP 116/83
[2018-06-25] MEDS: ACETAMINOPHEN 325 MG TABLET PO PRN (18:54)
[2018-06-25] MEDS: DIAZEPAM 5 MG TABLET PO PRN (18:54)
[2018-06-25 19:05] VITALS: BP 121/87
[2018-06-25] MEDS: ARIPiprazole 10 MG TABLET PO SCH (20:19)
[2018-06-25] MEDS: DIVALPROEX SODIUM 500 MG ER TABLET PO SCH (20:19)
[2018-06-25] MEDS: ZOLPIDEM TARTRATE 10 MG TABLET PO PRN (22:07)
[2018-06-26 00:52] VITALS: BP 117/78
[2018-06-26] MEDS: ACETAMINOPHEN 325 MG TABLET PO PRN ×2 (01:00→14:23)
[2018-06-26 08:05] VITALS: BP 117/74
[2018-06-26] MEDS: MULTIVITAMINS WITH MINERALS, THERAPEUTIC TABLET PO SCH (08:21)
[2018-06-26] MEDS: GABAPENTIN 100 MG CAPSULE PO SCH ×3 (08:21→16:53)
[2018-06-26] MEDS: NICOTINE 21 MG/24 HOUR PATCH TD SCH (08:22)
[2018-06-26] MEDS: DIAZEPAM 5 MG TABLET PO PRN (09:17)
[2018-06-26 14:23] VITALS: BP 114/72
[2018-06-26 16:15] VITALS: BP 133/81
[2018-06-26] MEDS: ARIPiprazole 10 MG TABLET PO SCH (20:21)
[2018-06-26] MEDS: DIVALPROEX SODIUM 500 MG ER TABLET PO SCH (20:21)
[2018-06-27] VITALS: BP 114/75
[2018-06-27 01:20] VITALS: BP 120/68
[2018-06-27] MEDS: ACETAMINOPHEN 325 MG TABLET PO PRN ×3 (01:24→19:37)
[2018-06-27] MEDS: FLUoxetine HCL 10 MG CAPSULE PO SCH (08:22)
[2018-06-27] MEDS: MULTIVITAMINS WITH MINERALS, THERAPEUTIC TABLET PO SCH (08:22)
[2018-06-27] MEDS: NICOTINE 21 MG/24 HOUR PATCH TD SCH (08:27)
[2018-06-27] MEDS: GABAPENTIN 100 MG CAPSULE PO SCH ×3 (08:29→16:40)
[2018-06-27 08:49] VITALS: BP 114/75
[2018-06-27 16:20] VITALS: BP 115/69
[2018-06-27] MEDS: ARIPiprazole 10 MG TABLET PO SCH (20:33)
[2018-06-27] MEDS: DIVALPROEX SODIUM 500 MG ER TABLET PO SCH (20:33)
[2018-06-27] MEDS: ZOLPIDEM TARTRATE 10 MG TABLET PO PRN (21:51)
[2018-06-28 00:36] VITALS: BP 132/80
[2018-06-28] MEDS: ACETAMINOPHEN 325 MG TABLET PO PRN ×2 (00:41→21:23)
[2018-06-28] MEDS: MULTIVITAMINS WITH MINERALS, THERAPEUTIC TABLET PO SCH (08:19)
[2018-06-28] MEDS: FLUoxetine HCL 10 MG CAPSULE PO SCH (08:19)
[2018-06-28] MEDS: GABAPENTIN 100 MG CAPSULE PO SCH ×3 (08:19→16:50)
[2018-06-28] MEDS: NICOTINE 21 MG/24 HOUR PATCH TD SCH (08:20)
[2018-06-28 08:27] VITALS: BP 117/66
[2018-06-28 16:20] VITALS: BP 128/80
[2018-06-28] MEDS: BENZTROPINE MESYLATE 1 MG TABLET PO SCH (20:43)
[2018-06-28] MEDS: DIVALPROEX SODIUM 500 MG ER TABLET PO SCH (20:43)
[2018-06-28] MEDS: ARIPiprazole 10 MG TABLET PO SCH (20:43)
[2018-06-28 21:23] VITALS: BP 118/76
[2018-06-29 04:04] VITALS: BP 116/66
[2018-06-29] MEDS: ACETAMINOPHEN 325 MG TABLET PO PRN (04:04)
[2018-06-29 07:47] LABS: BASOPHILS % (AUTO) 0.5 % (0.0-2.0); EOSINOPHILS % (AUTO) 2.1 % (1.0-6.0); HEMATOCRIT 34.7 % (36-46); HEMOGLOBIN 11.8 g/dL (12.0-16.0); LYMPHOCYTES # (AUTO) 2.3 K/uL (1.0-4.8); LYMPHOCYTES % (AUTO) 33.6 % (22.0-44.0); MEAN CORPUSCULAR HEMOGLOBIN 30.1 pg (26.0-34.0); MEAN CORPUSCULAR HGB CONC 34.1 G/dL (31.0-37.0); MEAN CORPUSCULAR VOLUME 88 fL (80-100); MONOCYTES # (AUTO) 0.7 K/uL (0.1-1.0); MONOCYTES % (AUTO) 10.1 % (2.0-9.0); NEUTROPHILS # (AUTO) 3.7 K/uL (1.8-7.7); NEUTROPHILS % (AUTO) 53.7 % (40.0-70.0); PLATELET COUNT (AUTO) 219 K/uL (150-450); RED BLOOD CELL COUNT(AUTO) 3.93 MIL/uL (4.00-5.20); RED CELL DISTRIBUTION WIDTH 14.3 % (11.5-14.5)
[2018-06-29 08:13] LABS: ALBUMIN 2.8 g/dL (3.4-5.0); BILIRUBIN,DIRECT 0.1 mg/dL (0.00-0.20); BILIRUBIN,TOTAL 0.3 mg/dL (0.1-1.0); TOTAL PROTEIN, SERUM 6.4 g/dL (6.4-8.2)
[2018-06-29 08:21] VITALS: BP 103/64
[2018-06-29] MEDS: FLUoxetine HCL 20 MG CAPSULE PO SCH (08:25)
[2018-06-29] MEDS: MULTIVITAMINS WITH MINERALS, THERAPEUTIC TABLET PO SCH (08:25)
[2018-06-29] MEDS: NICOTINE 21 MG/24 HOUR PATCH TD SCH (08:26)
[2018-06-29 16:39] VITALS: BP 125/93
[2018-06-29] MEDS: ARIPiprazole 10 MG TABLET PO SCH (20:25)
[2018-06-29] MEDS: ZOLPIDEM TARTRATE 10 MG TABLET PO PRN (20:26)
[2018-06-29] MEDS: DIVALPROEX SODIUM 500 MG ER TABLET PO SCH (20:26)
[2018-06-29] MEDS: BENZTROPINE MESYLATE 1 MG TABLET PO SCH (20:26)
[2018-06-30 01:30] VITALS: BP 117/68
[2018-06-30] MEDS: ACETAMINOPHEN 325 MG TABLET PO PRN ×3 (01:30→18:03)
[2018-06-30 08:14] VITALS: BP 130/87
[2018-06-30] MEDS: FLUoxetine HCL 20 MG CAPSULE PO SCH (08:34)
[2018-06-30] MEDS: MULTIVITAMINS WITH MINERALS, THERAPEUTIC TABLET PO SCH (08:34)
[2018-06-30] MEDS: NICOTINE 21 MG/24 HOUR PATCH TD SCH (08:34)
[2018-06-30 15:46] VITALS: BP 125/78
[2018-06-30] MEDS: DIAZEPAM 5 MG TABLET PO PRN (15:46)
[2018-06-30 16:23] VITALS: BP 129/81
[2018-06-30 18:03] VITALS: BP 122/75
[2018-06-30] MEDS: ARIPiprazole 10 MG TABLET PO SCH (20:44)
[2018-06-30] MEDS: DIVALPROEX SODIUM 500 MG ER TABLET PO SCH (20:44)
[2018-06-30] MEDS: BENZTROPINE MESYLATE 1 MG TABLET PO SCH (20:45)
[2018-07-01 00:10] VITALS: BP 136/83
[2018-07-01] MEDS: ACETAMINOPHEN 325 MG TABLET PO PRN ×3 (00:15→15:59)
[2018-07-01] MEDS: DIAZEPAM 5 MG TABLET PO PRN ×2 (00:15→09:01)
[2018-07-01 06:40] VITALS: BP 132/73
[2018-07-01] MEDS: MULTIVITAMINS WITH MINERALS, THERAPEUTIC TABLET PO SCH (08:06)
[2018-07-01] MEDS: FLUoxetine HCL 20 MG CAPSULE PO SCH (08:06)
[2018-07-01] MEDS: NICOTINE 21 MG/24 HOUR PATCH TD SCH (08:07)
[2018-07-01 08:17] VITALS: BP 121/83
[2018-07-01] MEDS: BENZTROPINE MESYLATE 1 MG TABLET PO SCH ×2 (13:00→16:31)
[2018-07-01 16:00] VITALS: BP 125/74
[2018-07-01] MEDS: ARIPiprazole 10 MG TABLET PO SCH (20:34)
[2018-07-01] MEDS: DIVALPROEX SODIUM 500 MG ER TABLET PO SCH (20:34)
[2018-07-02 02:52] VITALS: BP 124/76
[2018-07-02] MEDS: ACETAMINOPHEN 325 MG TABLET PO PRN (02:53)
[2018-07-02] MEDS: FLUoxetine HCL 20 MG CAPSULE PO SCH (08:09)
[2018-07-02] MEDS: MULTIVITAMINS WITH MINERALS, THERAPEUTIC TABLET PO SCH (08:09)
[2018-07-02] MEDS: BENZTROPINE MESYLATE 1 MG TABLET PO SCH ×3 (08:09→16:51)
[2018-07-02] MEDS: NICOTINE 21 MG/24 HOUR PATCH TD SCH (08:11)
[2018-07-02 08:23] VITALS: BP 116/72
[2018-07-02 16:17] VITALS: BP 134/77
[2018-07-02] MEDS: ARIPiprazole 10 MG TABLET PO SCH (20:38)
[2018-07-02] MEDS: DIVALPROEX SODIUM 500 MG ER TABLET PO SCH (20:38)
[2018-07-03 02:55] VITALS: BP 128/76
[2018-07-03] MEDS: ACETAMINOPHEN 325 MG TABLET PO PRN (02:58)
[2018-07-03] MEDS: DIAZEPAM 5 MG TABLET PO PRN ×2 (03:42→10:13)
[2018-07-03 07:39] LABS: BASOPHILS % (AUTO) 0.5 % (0.0-2.0); EOSINOPHILS % (AUTO) 2.5 % (1.0-6.0); HEMATOCRIT 36.2 % (36-46); HEMOGLOBIN 12.6 g/dL (12.0-16.0); LYMPHOCYTES # (AUTO) 2.4 K/uL (1.0-4.8); MEAN CORPUSCULAR HGB CONC 34.7 G/dL (31.0-37.0); MEAN CORPUSCULAR VOLUME 90 fL (80-100); MONOCYTES # (AUTO) 0.7 K/uL (0.1-1.0); MONOCYTES % (AUTO) 9.8 % (2.0-9.0); NEUTROPHILS # (AUTO) 3.8 K/uL (1.8-7.7); NEUTROPHILS % (AUTO) 53.2 % (40.0-70.0); PLATELET COUNT (AUTO) 205 K/uL (150-450); RED BLOOD CELL COUNT(AUTO) 4.05 MIL/uL (4.00-5.20); RED CELL DISTRIBUTION WIDTH 14.5 % (11.5-14.5)
[2018-07-03 07:52] LABS: ANION GAP 6 mmol/L (8-16); CALCIUM, TOTAL 8.7 mg/dL (8.8-10.5); CARBON DIOXIDE 29 mmol/L (22-29); CHLORIDE 104 mmol/L (98-107); CREATININE 0.72 mg/dL (0.60-1.30); GLOMERULAR FILTR. RATE CALC > 60 mL/min (>60); GLUCOSE,RANDOM 84 mg/dL (70-110); PHOSPHORUS 3.3 mg/dL (2.5-4.9); POTASSIUM 4.4 mmol/L (3.5-5.1); SODIUM SERUM 139 mmol/L (136-145); UREA NITROGEN, BLOOD 21 mg/dL (7-18)
[2018-07-03] MEDS: FLUoxetine HCL 20 MG CAPSULE PO SCH (08:11)
[2018-07-03] MEDS: MULTIVITAMINS WITH MINERALS, THERAPEUTIC TABLET PO SCH (08:11)
[2018-07-03] MEDS: BENZTROPINE MESYLATE 1 MG TABLET PO SCH ×3 (08:11→16:21)
[2018-07-03] MEDS: NICOTINE 21 MG/24 HOUR PATCH TD SCH (08:14)
[2018-07-03 08:34] VITALS: BP 124/77
[2018-07-03 16:00] VITALS: BP 132/75
[2018-07-03] MEDS: DIVALPROEX SODIUM 500 MG ER TABLET PO SCH (20:10)
[2018-07-03] MEDS: ARIPiprazole 10 MG TABLET PO SCH (20:10)
[2018-07-04 03:54] VITALS: BP 122/74
[2018-07-04] MEDS: ACETAMINOPHEN 325 MG TABLET PO PRN (04:37)
[2018-07-04] MEDS: DIAZEPAM 5 MG TABLET PO PRN (04:38)
[2018-07-04 08:00] VITALS: BP 119/67
[2018-07-04] MEDS ORDERED: BENZ2TAB10 PO (08:13)
[2018-07-04] MEDS ORDERED: FLUO-191 PO (08:13)
[2018-07-04] MEDS ORDERED: BENZ1TAB10 PO (08:13)
[2018-07-04] MEDS ORDERED: DIVA500T52 PO (08:13)
[2018-07-04] MEDS ORDERED: NICO-704 TD (08:14)
[2018-07-04] MEDS: FLUoxetine HCL 20 MG CAPSULE PO SCH (09:18)
[2018-07-04] MEDS: MULTIVITAMINS WITH MINERALS, THERAPEUTIC TABLET PO SCH (09:19)
[2018-07-04] MEDS: NICOTINE 21 MG/24 HOUR PATCH TD SCH (09:19)
[2018-07-04] MEDS: BENZTROPINE MESYLATE 1 MG TABLET PO SCH ×3 (09:23→16:36)
[2018-07-04 16:29] VITALS: BP 131/90
[2018-07-04] MEDS: ARIPiprazole 10 MG TABLET PO SCH (20:39)
[2018-07-04] MEDS: DIVALPROEX SODIUM 500 MG ER TABLET PO SCH (20:39)
[2018-07-05 00:01] VITALS: BP 118/70
[2018-07-05] MEDS: DIAZEPAM 5 MG TABLET PO PRN ×3 (00:03→12:25)
[2018-07-05] MEDS: ACETAMINOPHEN 325 MG TABLET PO PRN ×2 (00:04→06:11)
[2018-07-05 06:06] VITALS: BP 132/88
[2018-07-05 08:22] VITALS: BP 108/67
[2018-07-05] MEDS: FLUoxetine HCL 20 MG CAPSULE PO SCH (08:24)
[2018-07-05] MEDS: BENZTROPINE MESYLATE 1 MG TABLET PO SCH ×3 (08:24→16:37)
[2018-07-05] MEDS: MULTIVITAMINS WITH MINERALS, THERAPEUTIC TABLET PO SCH (08:24)
[2018-07-05] MEDS: NICOTINE 21 MG/24 HOUR PATCH TD SCH (08:26)
[2018-07-05 16:40] VITALS: BP 121/81
[2018-07-05] MEDS: ARIPiprazole 10 MG TABLET PO SCH (20:36)
[2018-07-05] MEDS: DIVALPROEX SODIUM 500 MG ER TABLET PO SCH (20:36)
[2018-07-06] MEDS: DIAZEPAM 5 MG TABLET PO PRN (01:39)
[2018-07-06] MEDS: ACETAMINOPHEN 325 MG TABLET PO PRN (01:39)
[2018-07-06 01:42] VITALS: BP 116/76
[2018-07-06 08:35] VITALS: BP 125/79
[2018-07-06] MEDS: BENZTROPINE MESYLATE 1 MG TABLET PO SCH ×3 (08:50→16:36)
[2018-07-06] MEDS: MULTIVITAMINS WITH MINERALS, THERAPEUTIC TABLET PO SCH (08:50)
[2018-07-06] MEDS: FLUoxetine HCL 20 MG CAPSULE PO SCH (08:50)
[2018-07-06] MEDS: NICOTINE 21 MG/24 HOUR PATCH TD SCH (08:51)
[2018-07-06 16:26] VITALS: BP 115/67
[2018-07-06] MEDS: ARIPiprazole 10 MG TABLET PO SCH (20:41)
[2018-07-06] MEDS: DIVALPROEX SODIUM 500 MG ER TABLET PO SCH (20:41)
[2018-07-07 02:00] VITALS: BP 132/90
[2018-07-07] MEDS: GuaiFENesin/D-METHORPHAN [SUGAR-FREE] 200-20MG/10 ML SYRUP UDCUP PO PRN (02:06)
[2018-07-07] MEDS: ACETAMINOPHEN 325 MG TABLET PO PRN (02:08)
[2018-07-07] MEDS: DIAZEPAM 5 MG TABLET PO PRN ×2 (06:26→18:23)
[2018-07-07] MEDS: MULTIVITAMINS WITH MINERALS, THERAPEUTIC TABLET PO SCH (08:18)
[2018-07-07] MEDS: BENZTROPINE MESYLATE 1 MG TABLET PO SCH ×3 (08:18→17:15)
[2018-07-07] MEDS: NICOTINE 21 MG/24 HOUR PATCH TD SCH (08:18)
[2018-07-07] MEDS: FLUoxetine HCL 20 MG CAPSULE PO SCH (08:18)
[2018-07-07 08:30] VITALS: BP 118/77
[2018-07-07 16:42] VITALS: BP 104/67
[2018-07-07] MEDS: DIVALPROEX SODIUM 500 MG ER TABLET PO SCH (20:50)
[2018-07-07] MEDS: ARIPiprazole 10 MG TABLET PO SCH (20:50)
[2018-07-08] MEDS: ACETAMINOPHEN 325 MG TABLET PO PRN ×3 (01:11→14:15)
[2018-07-08 01:30] VITALS: BP 130/77
[2018-07-08] MEDS: DIAZEPAM 5 MG TABLET PO PRN ×2 (01:49→14:15)
[2018-07-08 06:55] VITALS: BP 128/82
[2018-07-08 08:26] VITALS: BP 108/66
[2018-07-08] MEDS: MULTIVITAMINS WITH MINERALS, THERAPEUTIC TABLET PO SCH (08:26)
[2018-07-08] MEDS: NICOTINE 21 MG/24 HOUR PATCH TD SCH (08:26)
[2018-07-08] MEDS: FLUoxetine HCL 20 MG CAPSULE PO SCH (08:26)
[2018-07-08] MEDS: BENZTROPINE MESYLATE 1 MG TABLET PO SCH ×3 (08:26→16:47)
[2018-07-08 14:15] VITALS: BP 114/72
[2018-07-08 16:14] VITALS: BP 106/68
[2018-07-08] MEDS: DIVALPROEX SODIUM 500 MG ER TABLET PO SCH (20:43)
[2018-07-08] MEDS: ARIPiprazole 10 MG TABLET PO SCH (20:43)
[2018-07-09 01:54] VITALS: BP 124/62
[2018-07-09] MEDS: GuaiFENesin/D-METHORPHAN [SUGAR-FREE] 200-20MG/10 ML SYRUP UDCUP PO PRN (01:56)
[2018-07-09] MEDS: ACETAMINOPHEN 325 MG TABLET PO PRN (01:57)
[2018-07-09 02:30] VITALS: BP 108/74
[2018-07-09] MEDS: DIAZEPAM 5 MG TABLET PO PRN (02:39)
[2018-07-09 07:56] VITALS: BP 112/75
[2018-07-09] MEDS: MULTIVITAMINS WITH MINERALS, THERAPEUTIC TABLET PO SCH (08:51)
[2018-07-09] MEDS: NICOTINE 21 MG/24 HOUR PATCH TD SCH (08:51)
[2018-07-09] MEDS: FLUoxetine HCL 20 MG CAPSULE PO SCH (08:51)
[2018-07-09] MEDS: BENZTROPINE MESYLATE 1 MG TABLET PO SCH ×3 (08:51→16:10)
[2018-07-09 09:10] VITALS: BP 112/75
[2018-07-09 16:17] VITALS: BP 108/67
[2018-07-09] MEDS: FluPHENAZine HCL 5 MG TABLET PO SCH (20:25)
[2018-07-09] MEDS: DIVALPROEX SODIUM 500 MG ER TABLET PO SCH (20:26)
[2018-07-10] MEDS: ACETAMINOPHEN 325 MG TABLET PO PRN ×2 (02:00→06:12)
[2018-07-10] MEDS: GuaiFENesin/D-METHORPHAN [SUGAR-FREE] 200-20MG/10 ML SYRUP UDCUP PO PRN (02:00)
[2018-07-10] MEDS: DIAZEPAM 5 MG TABLET PO PRN ×2 (02:00→06:11)
[2018-07-10 02:13] VITALS: BP 107/68
[2018-07-10 06:00] VITALS: BP 124/76
[2018-07-10 08:32] VITALS: BP 113/82
[2018-07-10] MEDS: FLUoxetine HCL 20 MG CAPSULE PO SCH (09:06)
[2018-07-10] MEDS: BENZTROPINE MESYLATE 1 MG TABLET PO SCH ×3 (09:06→17:00)
[2018-07-10] MEDS: MULTIVITAMINS WITH MINERALS, THERAPEUTIC TABLET PO SCH (09:06)
[2018-07-10] MEDS: NICOTINE 21 MG/24 HOUR PATCH TD SCH (09:06)
[2018-07-10 16:24] VITALS: BP 116/73
[2018-07-10] MEDS: FluPHENAZine HCL 5 MG TABLET PO SCH (20:52)
[2018-07-10] MEDS: DIVALPROEX SODIUM 500 MG ER TABLET PO SCH (20:52)
[2018-07-10] MEDS: ZOLPIDEM TARTRATE 10 MG TABLET PO PRN (20:58)
[2018-07-11 05:38] VITALS: BP 121/82
[2018-07-11] MEDS: ACETAMINOPHEN 325 MG TABLET PO PRN ×3 (05:39→23:56)
[2018-07-11] MEDS: DIAZEPAM 5 MG TABLET PO PRN ×2 (05:39→23:56)
[2018-07-11] MEDS: GuaiFENesin/D-METHORPHAN [SUGAR-FREE] 200-20MG/10 ML SYRUP UDCUP PO PRN ×3 (05:41→23:56)
[2018-07-11 08:34] VITALS: BP 121/79
[2018-07-11] MEDS: BENZTROPINE MESYLATE 1 MG TABLET PO SCH ×3 (10:15→17:04)
[2018-07-11] MEDS: NICOTINE 21 MG/24 HOUR PATCH TD SCH (10:16)
[2018-07-11] MEDS: FLUoxetine HCL 20 MG CAPSULE PO SCH (10:16)
[2018-07-11] MEDS: MULTIVITAMINS WITH MINERALS, THERAPEUTIC TABLET PO SCH (10:16)
[2018-07-11 16:15] VITALS: BP 114/70
[2018-07-11] MEDS: DIVALPROEX SODIUM 500 MG ER TABLET PO SCH (20:37)
[2018-07-11] MEDS: FluPHENAZine HCL 5 MG TABLET PO SCH (20:38)
[2018-07-12] VITALS: BP 121/79
[2018-07-12 05:20] VITALS: BP 125/78
[2018-07-12] MEDS: ACETAMINOPHEN 325 MG TABLET PO PRN ×2 (05:21→20:13)
[2018-07-12 08:21] VITALS: BP 109/68
[2018-07-12] MEDS: FLUoxetine HCL 20 MG CAPSULE PO SCH (08:58)
[2018-07-12] MEDS: NICOTINE 21 MG/24 HOUR PATCH TD SCH (08:58)
[2018-07-12] MEDS: MULTIVITAMINS WITH MINERALS, THERAPEUTIC TABLET PO SCH (08:58)
[2018-07-12 16:42] VITALS: BP 114/63
[2018-07-12] MEDS: DIVALPROEX SODIUM 500 MG ER TABLET PO SCH (20:12)
[2018-07-12] MEDS: FluPHENAZine HCL 5 MG TABLET PO SCH (20:12)
[2018-07-12 20:13] VITALS: BP 118/68
[2018-07-13 04:30] VITALS: BP 122/70
[2018-07-13] MEDS: ACETAMINOPHEN 325 MG TABLET PO PRN (04:34)
[2018-07-13] MEDS: GuaiFENesin/D-METHORPHAN [SUGAR-FREE] 200-20MG/10 ML SYRUP UDCUP PO PRN (04:55)
[2018-07-13 08:30] VITALS: BP 104/66
[2018-07-13] MEDS: FLUoxetine HCL 20 MG CAPSULE PO SCH (08:44)
[2018-07-13] MEDS: MULTIVITAMINS WITH MINERALS, THERAPEUTIC TABLET PO SCH (08:44)
[2018-07-13] MEDS: NICOTINE 21 MG/24 HOUR PATCH TD SCH (08:44)
[2018-07-13] MEDS: ARIPiprazole LAUROXIL ER SUSPENSION 662 MG/2.4 ML SYRINGE IM SCH (09:06)
[2018-07-13] MEDS: DIAZEPAM 5 MG TABLET PO PRN (16:03)
[2018-07-13 16:08] VITALS: BP 111/64
[2018-07-13] MEDS: DIVALPROEX SODIUM 500 MG ER TABLET PO SCH (20:14)
[2018-07-13] MEDS: FluPHENAZine HCL 5 MG TABLET PO SCH (20:14)
[2018-07-14] MEDS: ACETAMINOPHEN 325 MG TABLET PO PRN ×2 (01:56→06:20)
[2018-07-14 01:59] VITALS: BP 116/82
[2018-07-14 08:30] VITALS: BP 105/60
[2018-07-14] MEDS: MULTIVITAMINS WITH MINERALS, THERAPEUTIC TABLET PO SCH (08:43)
[2018-07-14] MEDS: FLUoxetine HCL 20 MG CAPSULE PO SCH (08:43)
[2018-07-14] MEDS: NICOTINE 21 MG/24 HOUR PATCH TD SCH (08:43)
[2018-07-14] MEDS: DIAZEPAM 5 MG TABLET PO PRN (11:51)
[2018-07-14 16:09] VITALS: BP 105/67
[2018-07-14] MEDS: DIVALPROEX SODIUM 500 MG ER TABLET PO SCH (21:12)
[2018-07-14] MEDS: FluPHENAZine HCL 5 MG TABLET PO SCH (21:12)
[2018-07-15 04:29] VITALS: BP 110/63
[2018-07-15 08:08] VITALS: BP 120/71
[2018-07-15] MEDS: MULTIVITAMINS WITH MINERALS, THERAPEUTIC TABLET PO SCH (09:14)
[2018-07-15] MEDS: FLUoxetine HCL 20 MG CAPSULE PO SCH (09:14)
[2018-07-15] MEDS: NICOTINE 21 MG/24 HOUR PATCH TD SCH (09:14)
[2018-07-15] MEDS: DIAZEPAM 5 MG TABLET PO PRN (12:24)
[2018-07-15 16:12] VITALS: BP 106/68
[2018-07-15] MEDS: FluPHENAZine HCL 5 MG TABLET PO SCH (20:21)
[2018-07-15] MEDS: DIVALPROEX SODIUM 500 MG ER TABLET PO SCH (20:21)
[2018-07-16 00:32] VITALS: BP 110/70
[2018-07-16] MEDS: FLUoxetine HCL 20 MG CAPSULE PO SCH (08:52)
[2018-07-16] MEDS: MULTIVITAMINS WITH MINERALS, THERAPEUTIC TABLET PO SCH (08:52)
[2018-07-16] MEDS: NICOTINE 21 MG/24 HOUR PATCH TD SCH (08:52)
[2018-07-16 11:23] VITALS: BP 107/71
[2018-07-16 16:14] VITALS: BP 108/62
[2018-07-16] MEDS: DIVALPROEX SODIUM 500 MG ER TABLET PO SCH (20:14)
[2018-07-16] MEDS: FluPHENAZine HCL 5 MG TABLET PO SCH (20:14)
[2018-07-17 07:10] VITALS: BP 114/74
[2018-07-17 08:25] VITALS: BP 121/70
[2018-07-17] MEDS: FLUoxetine HCL 20 MG CAPSULE PO SCH (08:38)
[2018-07-17] MEDS: MULTIVITAMINS WITH MINERALS, THERAPEUTIC TABLET PO SCH (08:38)
[2018-07-17] MEDS: NICOTINE 21 MG/24 HOUR PATCH TD SCH (08:38)
[2018-07-17 16:17] VITALS: BP 115/68
[2018-07-17] MEDS: FluPHENAZine HCL 5 MG TABLET PO SCH (20:22)
[2018-07-17] MEDS: DIVALPROEX SODIUM 500 MG ER TABLET PO SCH (20:22)
[2018-07-18 06:40] VITALS: BP 112/74
[2018-07-18] MEDS: MULTIVITAMINS WITH MINERALS, THERAPEUTIC TABLET PO SCH (08:37)
[2018-07-18] MEDS: FLUoxetine HCL 20 MG CAPSULE PO SCH (08:37)
[2018-07-18] MEDS: NICOTINE 21 MG/24 HOUR PATCH TD SCH (08:37)
[2018-07-18 10:00] VITALS: BP 90/53
[2018-07-18] MEDS ORDERED: NALT50TA PO (15:06)
[2018-07-18] MEDS ORDERED: ARIP662S IM (15:07)
[2018-07-18 16:09] VITALS: BP 104/63
[2018-07-18] MEDS: ZOLPIDEM TARTRATE 10 MG TABLET PO PRN (20:14)
[2018-07-18] MEDS: FluPHENAZine HCL 5 MG TABLET PO SCH (20:14)
[2018-07-18] MEDS: DIVALPROEX SODIUM 500 MG ER TABLET PO SCH (20:14)
[2018-07-19 00:46] VITALS: BP 109/60
[2018-07-19] MEDS: FLUoxetine HCL 20 MG CAPSULE PO SCH (08:36)
[2018-07-19] MEDS: MULTIVITAMINS WITH MINERALS, THERAPEUTIC TABLET PO SCH (08:36)
[2018-07-19] MEDS: NICOTINE 21 MG/24 HOUR PATCH TD SCH (08:38)
[2018-07-19 08:42] VITALS: BP 110/78
[2018-07-19] MEDS ORDERED: FLUP10 PO (08:56)
[2018-07-19] MEDS ORDERED: NICO-704 TD ×2 (10:54→12:43)
== END 2018-07-19 13:30 | disposition home or self-care (01) | DRG 885 ==
LOC: EMS 11:58 → B2X 18:18
PROVIDERS: ADMIT Psychiatry & Neurology Psychiatry; ATTEND Psychiatry & Neurology Psychiatry
DX: F25.0 Schizoaffective disorder, bipolar type (principal); R45.851 Suicidal ideations; F17.200 Nicotine dependence, unspecified, uncomplicated; J20.9 Acute bronchitis, unspecified; G43.909 Migraine, unspecified, not intractable, without status migrainosus; K21.9 Gastro-esophageal reflux disease without esophagitis; J45.909 Unspecified asthma, uncomplicated; N83.201 Unspecified ovarian cyst, right side; Z79.899 Other long term (current) drug therapy; Z91.14 Patient's other noncompliance with medication regimen
CPT/HCPCS: 76856; 83036; 83540; 83550; 83735; 84100; 84132; 84439; 84443; 85007; 87081; G0480; G0481

== ENCOUNTER 2019-06-09 13:21 | Inpatient (IN) | payer MEDICARE, MEDICAID ==
[~2019-06-09] VITALS: Ht 160 cm; Wt 84.8 kg
[~2019-06-09 13:21] MED LIST changes: -ARIP10TA8 PO; +ARIP662S IM; +DIVA500T52 PO; +NALT50TA PO; +NICO-704 TD; -SIMV-259 PO
[2019-06-09 16:05] VITALS: BP 136/86
[2019-06-09] MEDS ORDERED: NALT50TA6 PO (16:12)
[2019-06-09] MEDS ORDERED: DIVA500T52 PO (16:12)
[2019-06-09] MEDS ORDERED: ARIP662S IM (16:12)
[2019-06-09] MEDS ORDERED: QUEtiapine FUMARATE 100 MG TABLET PO PRN (16:30)
[2019-06-09 17:33] VITALS: BP 125/88
[2019-06-09] MEDS ORDERED: GuaiFENesin/D-METHORPHAN [SUGAR-FREE] 200-20MG/10 ML SYRUP UDCUP PO PRN (18:45)
[2019-06-09] MEDS ORDERED: ONDANSETRON HCL 4 MG TABLET PO PRN (18:45)
[2019-06-09] MEDS ORDERED: LOPERAMIDE HCL 2 MG CAPSULE PO PRN (18:45)
[2019-06-09] MEDS ORDERED: ALBUTEROL SULFATE HFA 90 MCG/PUFF 8 GM INHALER IH PRN (18:45)
[2019-06-09] MEDS ORDERED: CloNIDine HCL 0.1 MG TABLET PO PRN (18:45)
[2019-06-09] MEDS ORDERED: MAGNESIUM HYDROXIDE SUSPENSION 30 ML UDCUP PO PRN (18:45)
[2019-06-09] MEDS ORDERED: DOCUSATE SODIUM 100 MG CAPSULE PO PRN (18:45)
[2019-06-09] MEDS ORDERED: MAG HYDROX/AL HYDROX/SIMETH ES 30 ML SUSPENSION UDCUP PO PRN (18:45)
[2019-06-10] MEDS: ZOLPIDEM TARTRATE 10 MG TABLET PO PRN (00:14)
[2019-06-10 00:29] VITALS: BP 124/78
[2019-06-10] MEDS ORDERED: PNEUMOCOCCAL VACCINE POLYVALENT 0.5 ML VIAL [PPSV23] IM ONE (08:00)
[2019-06-10 08:09] VITALS: BP 123/81
[2019-06-10 08:12] LABS: BASOPHILS % (AUTO) 0.5 % (0.0-2.0); EOSINOPHILS % (AUTO) 2.3 % (1.0-6.0); HEMATOCRIT 37.1 % (36-46); HEMOGLOBIN 13.1 g/dL (12.0-16.0); LYMPHOCYTES # (AUTO) 2.6 K/uL (1.0-4.8); MEAN CORPUSCULAR HEMOGLOBIN 31.8 pg (26.0-34.0); MEAN CORPUSCULAR HGB CONC 35.3 G/dL (31.0-37.0); MEAN CORPUSCULAR VOLUME 90 fL (80-100); MONOCYTES # (AUTO) 0.5 K/uL (0.1-1.0); MONOCYTES % (AUTO) 7.2 % (2.0-9.0); NEUTROPHILS # (AUTO) 3.8 K/uL (1.8-7.7); PLATELET COUNT (AUTO) 252 K/uL (150-450); RED BLOOD CELL COUNT(AUTO) 4.12 MIL/uL (4.00-5.20); RED CELL DISTRIBUTION WIDTH 13.7 % (11.5-14.5)
[2019-06-10 08:29] LABS: HEMOGLOBIN A1C 5.5 % (4.5-6.2)
[2019-06-10 08:39] LABS: ALANINE AMINOTRANSFERASE 30 U/L (12-78); ALBUMIN 3.5 g/dL (3.4-5.0); ALKALINE PHOSPHATASE 144 U/L (46-116); ANION GAP 9 mmol/L (8-16); ASPARTATE AMINOTRANSFERASE 12 U/L (15-37); BILIRUBIN,TOTAL 0.3 mg/dL (0.1-1.0); CALCIUM, TOTAL 8.9 mg/dL (8.8-10.5); CARBON DIOXIDE 24 mmol/L (22-29); CHLORIDE 103 mmol/L (98-107); CHOL/HDL RATIO 5.5 (3.9-5.7); CHOLESTEROL 210 mg/dL (131-200); CREATININE 0.82 mg/dL (0.60-1.30); FREE T4 (FREE THYROXINE) 1.34 ng/dL (0.76-1.46); GLOMERULAR FILTR. RATE CALC > 60 mL/min (>60); GLUCOSE,RANDOM 86 mg/dL (70-110); HCG,QUANTITATIVE < 1 mIU/mL (0-6); HDL CHOLESTEROL 38 mg/dL (40-60); LDL CHOL (CALC.) 130 mg/dL (0-130); POTASSIUM 3.7 mmol/L (3.5-5.1); SODIUM SERUM 136 mmol/L (136-145); THYROID STIMULATING HORMONE 1.19 uIU/mL (0.36-3.74); TOTAL PROTEIN, SERUM 7.6 g/dL (6.4-8.2); TRIGLYCERIDES 209 mg/dL (15-150); UREA NITROGEN, BLOOD 11 mg/dL (7-18)
[2019-06-10] MEDS: ARIPiprazole 15 MG TABLET PO SCH (13:17)
[2019-06-10 16:17] VITALS: BP 119/81
[2019-06-10] MEDS: DIVALPROEX SODIUM 500 MG DR TABLET PO SCH (20:29)
[2019-06-10] MEDS: IBUPROFEN 400 MG TABLET PO PRN (23:29)
[2019-06-10 23:30] VITALS: BP 126/85
[2019-06-11 02:50] VITALS: BP 118/75
[2019-06-11] MEDS: ACETAMINOPHEN 325 MG TABLET PO PRN ×3 (02:55→19:21)
[2019-06-11] MEDS: IBUPROFEN 400 MG TABLET PO PRN ×2 (08:05→16:15)
[2019-06-11] MEDS: ARIPiprazole 15 MG TABLET PO SCH (08:05)
[2019-06-11 08:14] VITALS: BP 115/82
[2019-06-11 16:15] VITALS: BP 112/67
[2019-06-11] MEDS: TRIHEXYPHENIDYL HCL 2 MG TABLET PO SCH (16:31)
[2019-06-11] MEDS: DIVALPROEX SODIUM 500 MG DR TABLET PO SCH (20:33)
[2019-06-12 01:58] VITALS: BP 116/75
[2019-06-12] MEDS: IBUPROFEN 400 MG TABLET PO PRN ×2 (01:58→13:40)
[2019-06-12 04:30] VITALS: BP 110/85
[2019-06-12] MEDS: ACETAMINOPHEN 325 MG TABLET PO PRN ×3 (04:39→18:30)
[2019-06-12] MEDS: TRIHEXYPHENIDYL HCL 2 MG TABLET PO SCH ×2 (08:31→16:34)
[2019-06-12] MEDS: ARIPiprazole 15 MG TABLET PO SCH (08:31)
[2019-06-12 08:49] VITALS: BP 115/77
[2019-06-12] MEDS: PETROLATUM,WHITE 28 GM JELLY TP PRN (11:58)
[2019-06-12 16:09] VITALS: BP 110/68
[2019-06-12] MEDS: DIVALPROEX SODIUM 500 MG DR TABLET PO SCH (20:33)
[2019-06-12] MEDS: ZOLPIDEM TARTRATE 10 MG TABLET PO PRN (21:11)
[2019-06-13 00:16] VITALS: BP 109/60
[2019-06-13 03:51] VITALS: BP 110/68
[2019-06-13] MEDS: IBUPROFEN 400 MG TABLET PO PRN ×2 (03:55→19:50)
[2019-06-13] MEDS: LORazepam 2 MG TABLET PO PRN ×2 (04:50→14:34)
[2019-06-13 08:12] VITALS: BP 128/68
[2019-06-13 08:17] VITALS: BP 128/68
[2019-06-13] MEDS: TRIHEXYPHENIDYL HCL 2 MG TABLET PO SCH ×2 (09:07→16:28)
[2019-06-13] MEDS: ARIPiprazole 15 MG TABLET PO SCH (09:07)
[2019-06-13 16:58] VITALS: BP 110/61
[2019-06-13] MEDS: DIVALPROEX SODIUM 500 MG DR TABLET PO SCH (20:04)
[2019-06-14 02:45] VITALS: BP 124/74
[2019-06-14] MEDS: ACETAMINOPHEN 325 MG TABLET PO PRN ×2 (02:54→09:02)
[2019-06-14 06:49] VITALS: BP 105/85
[2019-06-14] MEDS: IBUPROFEN 400 MG TABLET PO PRN ×2 (06:50→16:03)
[2019-06-14 08:18] VITALS: BP 112/66
[2019-06-14] MEDS: TRIHEXYPHENIDYL HCL 2 MG TABLET PO SCH ×2 (08:43→16:37)
[2019-06-14] MEDS: ARIPiprazole 15 MG TABLET PO SCH (08:43)
[2019-06-14 09:02] VITALS: BP 118/70
[2019-06-14 16:01] VITALS: BP 112/82
[2019-06-14] MEDS: DIVALPROEX SODIUM 500 MG DR TABLET PO SCH (20:33)
[2019-06-14] MEDS: ZOLPIDEM TARTRATE 10 MG TABLET PO PRN (20:50)
[2019-06-15] MEDS: IBUPROFEN 400 MG TABLET PO PRN (05:43)
[2019-06-15] MEDS: LORazepam 2 MG TABLET PO PRN (05:44)
[2019-06-15 05:47] VITALS: BP 130/74
[2019-06-15 08:20] VITALS: BP 129/77
[2019-06-15] MEDS: ARIPiprazole 15 MG TABLET PO SCH (09:11)
[2019-06-15] MEDS: TRIHEXYPHENIDYL HCL 2 MG TABLET PO SCH ×2 (09:12→16:35)
[2019-06-15 16:16] VITALS: BP 108/68
[2019-06-15] MEDS: ZOLPIDEM TARTRATE 10 MG TABLET PO PRN (20:53)
[2019-06-15] MEDS: DIVALPROEX SODIUM 500 MG DR TABLET PO SCH (20:54)
[2019-06-16 00:44] VITALS: BP 125/87
[2019-06-16 04:07] VITALS: BP 105/70
[2019-06-16] MEDS: ACETAMINOPHEN 325 MG TABLET PO PRN ×2 (04:08→16:45)
[2019-06-16 08:13] VITALS: BP 110/66
[2019-06-16] MEDS: ARIPiprazole 15 MG TABLET PO SCH (08:16)
[2019-06-16] MEDS: TRIHEXYPHENIDYL HCL 2 MG TABLET PO SCH ×2 (08:16→16:27)
[2019-06-16 08:41] VITALS: BP 112/63
[2019-06-16] MEDS: IBUPROFEN 400 MG TABLET PO PRN (08:41)
[2019-06-16] MEDS: LORazepam 2 MG TABLET PO PRN (14:09)
[2019-06-16 16:15] VITALS: BP 109/70
[2019-06-16] MEDS: DIVALPROEX SODIUM 500 MG DR TABLET PO SCH (20:33)
[2019-06-16] MEDS: ZOLPIDEM TARTRATE 10 MG TABLET PO PRN (20:41)
[2019-06-17 00:18] VITALS: BP 105/71
[2019-06-17 08:17] VITALS: BP 128/77
[2019-06-17] MEDS: TRIHEXYPHENIDYL HCL 2 MG TABLET PO SCH ×2 (08:27→16:35)
[2019-06-17] MEDS: OMEGA-3/DHA/EPA/FISH OIL 1,000 MG CAPSULE PO SCH (08:27)
[2019-06-17] MEDS: ARIPiprazole 15 MG TABLET PO SCH (08:27)
[2019-06-17] MEDS: LORazepam 2 MG TABLET PO PRN ×2 (09:14→16:35)
[2019-06-17] MEDS: IBUPROFEN 400 MG TABLET PO PRN (09:14)
[2019-06-17] MEDS: PETROLATUM,WHITE 28 GM JELLY TP PRN (14:56)
[2019-06-17 16:35] VITALS: BP 102/63
[2019-06-17] MEDS: ZOLPIDEM TARTRATE 10 MG TABLET PO PRN (21:25)
[2019-06-17] MEDS: DIVALPROEX SODIUM 500 MG DR TABLET PO SCH (21:25)
[2019-06-18] MEDS: IBUPROFEN 400 MG TABLET PO PRN ×3 (00:02→20:23)
[2019-06-18 02:30] VITALS: BP 100/60
[2019-06-18] MEDS: ACETAMINOPHEN 325 MG TABLET PO PRN (04:23)
[2019-06-18] MEDS: OMEGA-3/DHA/EPA/FISH OIL 1,000 MG CAPSULE PO SCH (08:43)
[2019-06-18] MEDS: ARIPiprazole 15 MG TABLET PO SCH (08:44)
[2019-06-18] MEDS: TRIHEXYPHENIDYL HCL 2 MG TABLET PO SCH ×2 (08:44→16:10)
[2019-06-18 08:54] VITALS: BP 95/53
[2019-06-18] MEDS: LORazepam 2 MG TABLET PO PRN (09:34)
[2019-06-18] MEDS: LEVOFLOXACIN 500 MG TABLET PO SCH (12:06)
[2019-06-18] MEDS: PETROLATUM,WHITE 28 GM JELLY TP PRN (14:27)
[2019-06-18] MEDS: BACITRACIN 28.4 GM OINTMENT TP SCH (16:11)
[2019-06-18] MEDS: DIVALPROEX SODIUM 500 MG DR TABLET PO SCH (20:22)
[2019-06-18] MEDS: ZOLPIDEM TARTRATE 10 MG TABLET PO PRN (20:23)
[2019-06-19] MEDS: LORazepam 2 MG TABLET PO PRN (04:51)
[2019-06-19 07:43] VITALS: BP 137/78
[2019-06-19 08:28] VITALS: BP 101/71
[2019-06-19] MEDS: TRIHEXYPHENIDYL HCL 2 MG TABLET PO SCH ×2 (09:29→16:37)
[2019-06-19] MEDS: OMEGA-3/DHA/EPA/FISH OIL 1,000 MG CAPSULE PO SCH (09:29)
[2019-06-19] MEDS: ARIPiprazole 15 MG TABLET PO SCH (09:29)
[2019-06-19] MEDS: LEVOFLOXACIN 500 MG TABLET PO SCH (09:30)
[2019-06-19] MEDS: BACITRACIN 28.4 GM OINTMENT TP SCH ×2 (10:28→17:40)
[2019-06-19 16:14] VITALS: BP 109/68
[2019-06-19] MEDS: DIVALPROEX SODIUM 500 MG DR TABLET PO SCH (21:01)
[2019-06-19] MEDS: ZOLPIDEM TARTRATE 10 MG TABLET PO PRN (22:04)
[2019-06-20 00:17] VITALS: BP 133/89
[2019-06-20 08:19] VITALS: BP 125/72
[2019-06-20] MEDS: LEVOFLOXACIN 500 MG TABLET PO SCH (08:48)
[2019-06-20] MEDS: TRIHEXYPHENIDYL HCL 2 MG TABLET PO SCH ×2 (08:48→16:49)
[2019-06-20] MEDS: ARIPiprazole 15 MG TABLET PO SCH (08:48)
[2019-06-20] MEDS: OMEGA-3/DHA/EPA/FISH OIL 1,000 MG CAPSULE PO SCH (08:48)
[2019-06-20] MEDS: BACITRACIN 28.4 GM OINTMENT TP SCH ×2 (09:52→16:52)
[2019-06-20 16:17] VITALS: BP 138/90
[2019-06-20] MEDS: LORazepam 2 MG TABLET PO PRN (16:53)
[2019-06-20] MEDS: IBUPROFEN 400 MG TABLET PO PRN (16:54)
[2019-06-20 16:56] VITALS: BP 116/79
[2019-06-20] MEDS: DIVALPROEX SODIUM 500 MG DR TABLET PO SCH (20:52)
[2019-06-20] MEDS: NEOMYCIN/BACITRACIN/POLYMYXIN B 30 GM OINTMENT TP SCH (21:07)
[2019-06-21 00:01] VITALS: BP 128/89
[2019-06-21] MEDS: ZOLPIDEM TARTRATE 10 MG TABLET PO PRN ×2 (00:25→20:52)
[2019-06-21] MEDS: LORazepam 2 MG TABLET PO PRN (03:22)
[2019-06-21 08:16] VITALS: BP 109/76
[2019-06-21] MEDS: ARIPiprazole 15 MG TABLET PO SCH (08:54)
[2019-06-21] MEDS: TRIHEXYPHENIDYL HCL 2 MG TABLET PO SCH ×2 (08:54→16:35)
[2019-06-21] MEDS: OMEGA-3/DHA/EPA/FISH OIL 1,000 MG CAPSULE PO SCH (08:54)
[2019-06-21] MEDS: BACITRACIN 28.4 GM OINTMENT TP SCH ×2 (08:55→16:36)
[2019-06-21] MEDS: NEOMYCIN/BACITRACIN/POLYMYXIN B 30 GM OINTMENT TP SCH ×3 (08:55→16:35)
[2019-06-21] MEDS: LEVOFLOXACIN 500 MG TABLET PO SCH (08:55)
[2019-06-21 16:09] VITALS: BP 117/88
[2019-06-21] MEDS: DIVALPROEX SODIUM 500 MG DR TABLET PO SCH (20:52)
[2019-06-21 21:39] VITALS: BP 122/79
[2019-06-21] MEDS: IBUPROFEN 400 MG TABLET PO PRN (21:39)
[2019-06-22 01:11] VITALS: BP 111/77
[2019-06-22] MEDS: ACETAMINOPHEN 325 MG TABLET PO PRN (01:11)
[2019-06-22] MEDS: LORazepam 2 MG TABLET PO PRN ×2 (01:30→14:10)
[2019-06-22 08:21] VITALS: BP 116/79
[2019-06-22] MEDS: LEVOFLOXACIN 500 MG TABLET PO SCH (08:53)
[2019-06-22] MEDS: ARIPiprazole 15 MG TABLET PO SCH (08:53)
[2019-06-22] MEDS: OMEGA-3/DHA/EPA/FISH OIL 1,000 MG CAPSULE PO SCH (08:53)
[2019-06-22] MEDS: TRIHEXYPHENIDYL HCL 2 MG TABLET PO SCH ×2 (08:53→16:26)
[2019-06-22] MEDS: NEOMYCIN/BACITRACIN/POLYMYXIN B 30 GM OINTMENT TP SCH ×3 (08:54→20:35)
[2019-06-22] MEDS: BACITRACIN 28.4 GM OINTMENT TP SCH ×2 (08:54→20:36)
[2019-06-22 08:59] VITALS: BP 118/79
[2019-06-22] MEDS: IBUPROFEN 400 MG TABLET PO PRN ×2 (08:59→21:27)
[2019-06-22 16:28] VITALS: BP 130/65
[2019-06-22] MEDS: DIVALPROEX SODIUM 500 MG DR TABLET PO SCH (20:36)
[2019-06-22] MEDS: ZOLPIDEM TARTRATE 10 MG TABLET PO PRN (20:36)
[2019-06-23 00:34] VITALS: BP 102/64
[2019-06-23 08:12] VITALS: BP 112/66
[2019-06-23 08:28] LABS: BASOPHILS % (AUTO) 0.4 % (0.0-2.0); EOSINOPHILS % (AUTO) 1.9 % (1.0-6.0); HEMATOCRIT 35.6 % (36-46); HEMOGLOBIN 12.5 g/dL (12.0-16.0); LYMPHOCYTES # (AUTO) 2.7 K/uL (1.0-4.8); LYMPHOCYTES % (AUTO) 32.2 % (22.0-44.0); MEAN CORPUSCULAR HEMOGLOBIN 31.3 pg (26.0-34.0); MEAN CORPUSCULAR HGB CONC 34.9 G/dL (31.0-37.0); MEAN CORPUSCULAR VOLUME 90 fL (80-100); MONOCYTES # (AUTO) 0.6 K/uL (0.1-1.0); MONOCYTES % (AUTO) 7.7 % (2.0-9.0); NEUTROPHILS # (AUTO) 4.8 K/uL (1.8-7.7); NEUTROPHILS % (AUTO) 57.8 % (40.0-70.0); PLATELET COUNT (AUTO) 184 K/uL (150-450); RED BLOOD CELL COUNT(AUTO) 3.98 MIL/uL (4.00-5.20); RED CELL DISTRIBUTION WIDTH 13.4 % (11.5-14.5)
[2019-06-23] MEDS: ARIPiprazole 15 MG TABLET PO SCH (09:19)
[2019-06-23] MEDS: LEVOFLOXACIN 500 MG TABLET PO SCH (09:19)
[2019-06-23] MEDS: OMEGA-3/DHA/EPA/FISH OIL 1,000 MG CAPSULE PO SCH (09:19)
[2019-06-23] MEDS: TRIHEXYPHENIDYL HCL 2 MG TABLET PO SCH ×2 (09:20→17:20)
[2019-06-23] MEDS: NEOMYCIN/BACITRACIN/POLYMYXIN B 30 GM OINTMENT TP SCH ×3 (09:20→17:21)
[2019-06-23] MEDS: BACITRACIN 28.4 GM OINTMENT TP SCH ×2 (09:21→17:21)
[2019-06-23] MEDS: LORazepam 2 MG TABLET PO PRN (10:35)
[2019-06-23 19:22] VITALS: BP 100/65
[2019-06-23] MEDS: DIVALPROEX SODIUM 500 MG DR TABLET PO SCH (20:44)
[2019-06-23] MEDS: ZOLPIDEM TARTRATE 10 MG TABLET PO PRN (20:45)
[2019-06-23] MEDS: IBUPROFEN 400 MG TABLET PO PRN (20:45)
[2019-06-24 05:35] VITALS: BP 100/60
[2019-06-24 08:56] VITALS: BP 103/79
[2019-06-24] MEDS: LEVOFLOXACIN 500 MG TABLET PO SCH (08:57)
[2019-06-24] MEDS: OMEGA-3/DHA/EPA/FISH OIL 1,000 MG CAPSULE PO SCH (08:57)
[2019-06-24] MEDS: ARIPiprazole 15 MG TABLET PO SCH (08:57)
[2019-06-24] MEDS: TRIHEXYPHENIDYL HCL 2 MG TABLET PO SCH ×2 (08:57→16:38)
[2019-06-24] MEDS: NEOMYCIN/BACITRACIN/POLYMYXIN B 30 GM OINTMENT TP SCH ×3 (08:59→16:39)
[2019-06-24] MEDS: BACITRACIN 28.4 GM OINTMENT TP SCH ×2 (08:59→16:38)
[2019-06-24] MEDS: LORazepam 2 MG TABLET PO PRN (09:26)
[2019-06-24 16:17] VITALS: BP 110/76
[2019-06-24] MEDS: DIVALPROEX SODIUM 500 MG DR TABLET PO SCH (20:47)
[2019-06-24] MEDS: ZOLPIDEM TARTRATE 10 MG TABLET PO PRN (20:47)
[2019-06-25 01:44] VITALS: BP 106/54
[2019-06-25 08:14] VITALS: BP 99/71
[2019-06-25] MEDS: NEOMYCIN/BACITRACIN/POLYMYXIN B 30 GM OINTMENT TP SCH ×3 (08:53→16:31)
[2019-06-25] MEDS: BACITRACIN 28.4 GM OINTMENT TP SCH ×2 (08:53→16:31)
[2019-06-25] MEDS: ARIPiprazole 15 MG TABLET PO SCH (08:54)
[2019-06-25] MEDS: TRIHEXYPHENIDYL HCL 2 MG TABLET PO SCH ×2 (08:54→16:31)
[2019-06-25] MEDS: OMEGA-3/DHA/EPA/FISH OIL 1,000 MG CAPSULE PO SCH (08:54)
[2019-06-25 16:11] VITALS: BP 110/71
[2019-06-25] MEDS: DIVALPROEX SODIUM 500 MG DR TABLET PO SCH (20:36)
[2019-06-25] MEDS: ZOLPIDEM TARTRATE 10 MG TABLET PO PRN (20:53)
[2019-06-26 00:03] VITALS: BP 112/77
[2019-06-26] MEDS: LORazepam 2 MG TABLET PO PRN ×2 (00:06→11:24)
[2019-06-26] MEDS: OMEGA-3/DHA/EPA/FISH OIL 1,000 MG CAPSULE PO SCH (08:22)
[2019-06-26] MEDS: TRIHEXYPHENIDYL HCL 2 MG TABLET PO SCH ×2 (08:22→16:39)
[2019-06-26] MEDS: ARIPiprazole 15 MG TABLET PO SCH (08:22)
[2019-06-26] MEDS: NEOMYCIN/BACITRACIN/POLYMYXIN B 30 GM OINTMENT TP SCH ×3 (08:25→16:40)
[2019-06-26] MEDS: BACITRACIN 28.4 GM OINTMENT TP SCH ×2 (08:25→16:40)
[2019-06-26 08:41] VITALS: BP 111/69
[2019-06-26] MEDS: ACETAMINOPHEN 325 MG TABLET PO PRN (09:02)
[2019-06-26 16:07] VITALS: BP 112/71
[2019-06-26] MEDS: ZOLPIDEM TARTRATE 10 MG TABLET PO PRN (20:55)
[2019-06-26] MEDS: OXYBUTYNIN CHLORIDE 5 MG ER TABLET PO SCH (20:55)
[2019-06-26] MEDS: DIVALPROEX SODIUM 500 MG DR TABLET PO SCH (20:55)
[2019-06-27 01:20] VITALS: BP 101/64
[2019-06-27 08:09] VITALS: BP 106/68
[2019-06-27] MEDS: ARIPiprazole 15 MG TABLET PO SCH (09:10)
[2019-06-27] MEDS: TRIHEXYPHENIDYL HCL 2 MG TABLET PO SCH ×2 (09:10→16:30)
[2019-06-27] MEDS: OMEGA-3/DHA/EPA/FISH OIL 1,000 MG CAPSULE PO SCH (09:10)
[2019-06-27] MEDS: NEOMYCIN/BACITRACIN/POLYMYXIN B 30 GM OINTMENT TP SCH ×3 (09:11→16:30)
[2019-06-27] MEDS: BACITRACIN 28.4 GM OINTMENT TP SCH ×2 (09:11→16:30)
[2019-06-27] MEDS ORDERED: TraZODone HCL 100 MG TABLET PO PRN (11:15)
[2019-06-27 16:06] VITALS: BP 108/73
[2019-06-27] MEDS: LORazepam 2 MG TABLET PO PRN (20:16)
[2019-06-27] MEDS: OXYBUTYNIN CHLORIDE 5 MG ER TABLET PO SCH (20:45)
[2019-06-27] MEDS: DIVALPROEX SODIUM 500 MG DR TABLET PO SCH (20:46)
[2019-06-28 06:11] VITALS: BP 101/64
[2019-06-28 08:13] VITALS: BP 106/67
[2019-06-28] MEDS: ARIPiprazole 15 MG TABLET PO SCH (08:38)
[2019-06-28] MEDS: TRIHEXYPHENIDYL HCL 2 MG TABLET PO SCH ×2 (08:38→16:31)
[2019-06-28] MEDS: BACITRACIN 28.4 GM OINTMENT TP SCH (08:38)
[2019-06-28] MEDS: OMEGA-3/DHA/EPA/FISH OIL 1,000 MG CAPSULE PO SCH (08:38)
[2019-06-28] MEDS: NEOMYCIN/BACITRACIN/POLYMYXIN B 30 GM OINTMENT TP SCH ×3 (08:39→16:32)
[2019-06-28 16:06] VITALS: BP 103/71
[2019-06-28] MEDS: DIVALPROEX SODIUM 500 MG DR TABLET PO SCH (20:39)
[2019-06-28] MEDS: OXYBUTYNIN CHLORIDE 5 MG ER TABLET PO SCH (20:39)
[2019-06-29 00:07] VITALS: BP 105/63
[2019-06-29 08:21] VITALS: BP 121/75
[2019-06-29] MEDS: NEOMYCIN/BACITRACIN/POLYMYXIN B 30 GM OINTMENT TP SCH ×3 (08:24→16:40)
[2019-06-29] MEDS: ARIPiprazole 15 MG TABLET PO SCH (08:24)
[2019-06-29] MEDS: TRIHEXYPHENIDYL HCL 2 MG TABLET PO SCH ×2 (08:24→16:39)
[2019-06-29] MEDS: OMEGA-3/DHA/EPA/FISH OIL 1,000 MG CAPSULE PO SCH (08:24)
[2019-06-29 16:06] VITALS: BP 120/74
[2019-06-29] MEDS: OXYBUTYNIN CHLORIDE 5 MG ER TABLET PO SCH (20:36)
[2019-06-29] MEDS: DIVALPROEX SODIUM 500 MG DR TABLET PO SCH (20:36)
[2019-06-30 00:17] VITALS: BP 102/63
[2019-06-30 08:28] VITALS: BP 119/71
[2019-06-30] MEDS: TRIHEXYPHENIDYL HCL 2 MG TABLET PO SCH ×2 (08:35→16:21)
[2019-06-30] MEDS: ARIPiprazole 15 MG TABLET PO SCH (08:35)
[2019-06-30] MEDS: OMEGA-3/DHA/EPA/FISH OIL 1,000 MG CAPSULE PO SCH (08:35)
[2019-06-30] MEDS: NEOMYCIN/BACITRACIN/POLYMYXIN B 30 GM OINTMENT TP SCH ×2 (09:47→12:11)
[2019-06-30 16:10] VITALS: BP 106/69
[2019-06-30] MEDS: DIVALPROEX SODIUM 500 MG DR TABLET PO SCH (20:06)
[2019-06-30] MEDS: OXYBUTYNIN CHLORIDE 5 MG ER TABLET PO SCH (20:07)
[2019-07-01 01:27] VITALS: BP 102/73
[2019-07-01] MEDS: PETROLATUM,WHITE 28 GM JELLY TP PRN (03:26)
[2019-07-01 08:32] VITALS: BP 107/70
[2019-07-01] MEDS: TRIHEXYPHENIDYL HCL 2 MG TABLET PO SCH ×2 (09:30→16:34)
[2019-07-01] MEDS: OMEGA-3/DHA/EPA/FISH OIL 1,000 MG CAPSULE PO SCH (09:30)
[2019-07-01] MEDS: ARIPiprazole 15 MG TABLET PO SCH (09:30)
[2019-07-01 16:05] VITALS: BP 121/75
[2019-07-01] MEDS: DIVALPROEX SODIUM 500 MG DR TABLET PO SCH (20:31)
[2019-07-01] MEDS: OXYBUTYNIN CHLORIDE 5 MG ER TABLET PO SCH (20:31)
[2019-07-02 00:10] VITALS: BP 100/60
[2019-07-02 07:01] VITALS: BP 112/76
[2019-07-02] MEDS: IBUPROFEN 400 MG TABLET PO PRN ×2 (07:04→16:11)
[2019-07-02 08:11] VITALS: BP 104/72
[2019-07-02] MEDS: LORazepam 2 MG TABLET PO PRN (09:03)
[2019-07-02] MEDS: ARIPiprazole 15 MG TABLET PO SCH (09:03)
[2019-07-02] MEDS: OMEGA-3/DHA/EPA/FISH OIL 1,000 MG CAPSULE PO SCH (09:03)
[2019-07-02] MEDS: TRIHEXYPHENIDYL HCL 2 MG TABLET PO SCH ×2 (09:03→16:11)
[2019-07-02 16:09] VITALS: BP 116/81
[2019-07-02] MEDS: ZOLPIDEM TARTRATE 10 MG TABLET PO PRN (20:37)
[2019-07-02] MEDS: DIVALPROEX SODIUM 500 MG DR TABLET PO SCH (20:37)
[2019-07-02] MEDS: OXYBUTYNIN CHLORIDE 5 MG ER TABLET PO SCH (20:37)
[2019-07-03 02:16] VITALS: BP 100/60
[2019-07-03 03:00] VITALS: BP 109/62
[2019-07-03] MEDS: IBUPROFEN 400 MG TABLET PO PRN (03:04)
[2019-07-03 08:20] VITALS: BP 118/71
[2019-07-03] MEDS: ARIPiprazole 15 MG TABLET PO SCH (08:57)
[2019-07-03] MEDS: OMEGA-3/DHA/EPA/FISH OIL 1,000 MG CAPSULE PO SCH (08:57)
[2019-07-03] MEDS: TRIHEXYPHENIDYL HCL 2 MG TABLET PO SCH ×2 (08:57→16:31)
[2019-07-03 16:04] VITALS: BP 112/72
[2019-07-03] MEDS: OXYBUTYNIN CHLORIDE 5 MG ER TABLET PO SCH (20:34)
[2019-07-03] MEDS: DIVALPROEX SODIUM 500 MG DR TABLET PO SCH (20:34)
[2019-07-03] MEDS: ZOLPIDEM TARTRATE 10 MG TABLET PO PRN (21:09)
[2019-07-04 00:53] VITALS: BP 132/79
[2019-07-04 04:06] VITALS: BP 113/74
[2019-07-04] MEDS: IBUPROFEN 400 MG TABLET PO PRN ×2 (04:10→13:26)
[2019-07-04] MEDS: OMEGA-3/DHA/EPA/FISH OIL 1,000 MG CAPSULE PO SCH (08:09)
[2019-07-04] MEDS: TRIHEXYPHENIDYL HCL 2 MG TABLET PO SCH ×2 (08:09→17:14)
[2019-07-04] MEDS: ARIPiprazole 15 MG TABLET PO SCH (08:09)
[2019-07-04 08:13] VITALS: BP 106/68
[2019-07-04 13:28] VITALS: BP 117/72
[2019-07-04 16:04] VITALS: BP 113/70
[2019-07-04] MEDS: ZOLPIDEM TARTRATE 10 MG TABLET PO PRN (20:49)
[2019-07-04] MEDS: DIVALPROEX SODIUM 500 MG DR TABLET PO SCH (20:49)
[2019-07-04] MEDS: OXYBUTYNIN CHLORIDE 5 MG ER TABLET PO SCH (20:49)
[2019-07-05 01:11] VITALS: BP 114/72
[2019-07-05 04:34] VITALS: BP 113/74
[2019-07-05] MEDS: IBUPROFEN 400 MG TABLET PO PRN (04:38)
[2019-07-05 08:24] VITALS: BP 107/72
[2019-07-05] MEDS: ARIPiprazole 15 MG TABLET PO SCH (08:24)
[2019-07-05] MEDS: OMEGA-3/DHA/EPA/FISH OIL 1,000 MG CAPSULE PO SCH (08:24)
[2019-07-05] MEDS: TRIHEXYPHENIDYL HCL 2 MG TABLET PO SCH ×2 (08:24→16:33)
[2019-07-05 16:06] VITALS: BP 109/72
[2019-07-05] MEDS: OXYBUTYNIN CHLORIDE 5 MG ER TABLET PO SCH (20:34)
[2019-07-05] MEDS: DIVALPROEX SODIUM 500 MG DR TABLET PO SCH (20:34)
[2019-07-05] MEDS: ZOLPIDEM TARTRATE 10 MG TABLET PO PRN (21:59)
[2019-07-06 00:18] VITALS: BP 105/65
[2019-07-06 08:13] VITALS: BP 110/76
[2019-07-06] MEDS: ARIPiprazole 15 MG TABLET PO SCH (08:20)
[2019-07-06] MEDS: OMEGA-3/DHA/EPA/FISH OIL 1,000 MG CAPSULE PO SCH (08:21)
[2019-07-06] MEDS: TRIHEXYPHENIDYL HCL 2 MG TABLET PO SCH ×2 (08:21→16:36)
[2019-07-06] MEDS: LEVOFLOXACIN 500 MG TABLET PO SCH (11:56)
[2019-07-06] MEDS: IBUPROFEN 400 MG TABLET PO PRN (13:04)
[2019-07-06 14:04] VITALS: BP 112/64
[2019-07-06 16:12] VITALS: BP 112/70
[2019-07-06] MEDS: BACITRACIN 28.4 GM OINTMENT TP SCH (16:37)
[2019-07-06] MEDS: OXYBUTYNIN CHLORIDE 5 MG ER TABLET PO SCH (20:56)
[2019-07-06] MEDS: DIVALPROEX SODIUM 500 MG DR TABLET PO SCH (20:56)
[2019-07-06] MEDS: ZOLPIDEM TARTRATE 10 MG TABLET PO PRN (20:57)
[2019-07-07 01:53] VITALS: BP 113/63
[2019-07-07] MEDS: IBUPROFEN 400 MG TABLET PO PRN (02:14)
[2019-07-07 08:18] VITALS: BP 109/69
[2019-07-07] MEDS: OMEGA-3/DHA/EPA/FISH OIL 1,000 MG CAPSULE PO SCH (08:31)
[2019-07-07] MEDS: LEVOFLOXACIN 500 MG TABLET PO SCH (08:31)
[2019-07-07] MEDS: TRIHEXYPHENIDYL HCL 2 MG TABLET PO SCH ×2 (08:31→16:46)
[2019-07-07] MEDS: ARIPiprazole 15 MG TABLET PO SCH (08:31)
[2019-07-07] MEDS: BACITRACIN 28.4 GM OINTMENT TP SCH ×2 (09:20→16:47)
[2019-07-07 16:07] VITALS: BP 115/68
[2019-07-07] MEDS: DIVALPROEX SODIUM 500 MG DR TABLET PO SCH (20:30)
[2019-07-07] MEDS: OXYBUTYNIN CHLORIDE 5 MG ER TABLET PO SCH (20:30)
[2019-07-07] MEDS: ZOLPIDEM TARTRATE 10 MG TABLET PO PRN (20:31)
[2019-07-08 01:35] VITALS: BP 100/60
[2019-07-08 08:12] VITALS: BP 103/63
[2019-07-08] MEDS: TRIHEXYPHENIDYL HCL 2 MG TABLET PO SCH ×2 (08:40→16:12)
[2019-07-08] MEDS: BACITRACIN 28.4 GM OINTMENT TP SCH ×2 (08:40→16:14)
[2019-07-08] MEDS: ARIPiprazole 15 MG TABLET PO SCH (08:40)
[2019-07-08] MEDS: LEVOFLOXACIN 500 MG TABLET PO SCH (08:40)
[2019-07-08] MEDS: OMEGA-3/DHA/EPA/FISH OIL 1,000 MG CAPSULE PO SCH (08:40)
[2019-07-08 16:02] VITALS: BP 111/76
[2019-07-08] MEDS: IBUPROFEN 400 MG TABLET PO PRN (16:12)
[2019-07-08] MEDS: OXYBUTYNIN CHLORIDE 5 MG ER TABLET PO SCH (20:20)
[2019-07-08] MEDS: DIVALPROEX SODIUM 500 MG DR TABLET PO SCH (20:20)
[2019-07-09 00:48] VITALS: BP 106/72
[2019-07-09 08:17] VITALS: BP 100/71
[2019-07-09] MEDS: TRIHEXYPHENIDYL HCL 2 MG TABLET PO SCH ×2 (08:33→16:33)
[2019-07-09] MEDS: ARIPiprazole 15 MG TABLET PO SCH (08:33)
[2019-07-09] MEDS: OMEGA-3/DHA/EPA/FISH OIL 1,000 MG CAPSULE PO SCH (08:33)
[2019-07-09] MEDS: LEVOFLOXACIN 500 MG TABLET PO SCH (08:33)
[2019-07-09] MEDS: BACITRACIN 28.4 GM OINTMENT TP SCH ×2 (08:49→16:34)
[2019-07-09 16:43] VITALS: BP 110/66
[2019-07-09] MEDS: OXYBUTYNIN CHLORIDE 5 MG ER TABLET PO SCH (20:26)
[2019-07-09] MEDS: DIVALPROEX SODIUM 500 MG DR TABLET PO SCH (20:26)
[2019-07-10 00:28] VITALS: BP 92/54
[2019-07-10 08:15] VITALS: BP 116/83
[2019-07-10] MEDS: ARIPiprazole 15 MG TABLET PO SCH (08:47)
[2019-07-10] MEDS: TRIHEXYPHENIDYL HCL 2 MG TABLET PO SCH ×2 (08:47→16:40)
[2019-07-10] MEDS: LEVOFLOXACIN 500 MG TABLET PO SCH (08:47)
[2019-07-10] MEDS: OMEGA-3/DHA/EPA/FISH OIL 1,000 MG CAPSULE PO SCH (08:47)
[2019-07-10] MEDS: BACITRACIN 28.4 GM OINTMENT TP SCH (08:50)
[2019-07-10 16:22] VITALS: BP 90/51
[2019-07-10 20:13] VITALS: BP 106/69
[2019-07-10] MEDS: DIVALPROEX SODIUM 500 MG DR TABLET PO SCH (20:33)
[2019-07-10] MEDS: OXYBUTYNIN CHLORIDE 5 MG ER TABLET PO SCH (20:33)
[2019-07-11 01:32] VITALS: BP 97/69
[2019-07-11 08:29] VITALS: BP 106/66
[2019-07-11] MEDS: TRIHEXYPHENIDYL HCL 2 MG TABLET PO SCH ×2 (08:39→16:33)
[2019-07-11] MEDS: OMEGA-3/DHA/EPA/FISH OIL 1,000 MG CAPSULE PO SCH (08:39)
[2019-07-11] MEDS: ARIPiprazole 15 MG TABLET PO SCH (08:39)
[2019-07-11 17:26] VITALS: BP 107/75
[2019-07-11] MEDS: OXYBUTYNIN CHLORIDE 5 MG ER TABLET PO SCH (20:34)
[2019-07-11] MEDS: DIVALPROEX SODIUM 500 MG DR TABLET PO SCH (20:35)
[2019-07-12 00:46] VITALS: BP 103/62
[2019-07-12 08:24] VITALS: BP 114/70
[2019-07-12] MEDS: ARIPiprazole 15 MG TABLET PO SCH (08:46)
[2019-07-12] MEDS: OMEGA-3/DHA/EPA/FISH OIL 1,000 MG CAPSULE PO SCH (08:46)
[2019-07-12] MEDS: TRIHEXYPHENIDYL HCL 2 MG TABLET PO SCH ×2 (08:46→16:31)
[2019-07-12 16:56] VITALS: BP 112/69
[2019-07-12] MEDS: OXYBUTYNIN CHLORIDE 5 MG ER TABLET PO SCH (20:33)
[2019-07-12] MEDS: DIVALPROEX SODIUM 500 MG DR TABLET PO SCH (20:33)
[2019-07-13 01:39] VITALS: BP 100/55
[2019-07-13 08:40] VITALS: BP 129/72
[2019-07-13] MEDS: OMEGA-3/DHA/EPA/FISH OIL 1,000 MG CAPSULE PO SCH (08:52)
[2019-07-13] MEDS: ARIPiprazole 15 MG TABLET PO SCH (08:52)
[2019-07-13] MEDS: TRIHEXYPHENIDYL HCL 2 MG TABLET PO SCH ×2 (08:52→16:39)
[2019-07-13 16:14] VITALS: BP 108/63
[2019-07-13] MEDS: NICOTINE 14 MG/24 HOUR PATCH TD PRN (19:10)
[2019-07-13] MEDS: OXYBUTYNIN CHLORIDE 5 MG ER TABLET PO SCH (20:33)
[2019-07-13] MEDS: DIVALPROEX SODIUM 500 MG DR TABLET PO SCH (20:33)
[2019-07-14 00:33] VITALS: BP 117/74
[2019-07-14 08:14] VITALS: BP 120/77
[2019-07-14] MEDS: OMEGA-3/DHA/EPA/FISH OIL 1,000 MG CAPSULE PO SCH (08:31)
[2019-07-14] MEDS: TRIHEXYPHENIDYL HCL 2 MG TABLET PO SCH ×2 (08:31→16:12)
[2019-07-14] MEDS: ARIPiprazole 15 MG TABLET PO SCH (08:31)
[2019-07-14 16:15] VITALS: BP 101/63
[2019-07-14] MEDS: OXYBUTYNIN CHLORIDE 5 MG ER TABLET PO SCH (20:27)
[2019-07-14] MEDS: NICOTINE 14 MG/24 HOUR PATCH TD PRN (20:27)
[2019-07-14] MEDS: DIVALPROEX SODIUM 500 MG DR TABLET PO SCH (20:28)
[2019-07-15 00:40] VITALS: BP 102/64
[2019-07-15 08:18] VITALS: BP 112/66
[2019-07-15] MEDS: TRIHEXYPHENIDYL HCL 2 MG TABLET PO SCH ×2 (08:36→18:07)
[2019-07-15] MEDS: ARIPiprazole 15 MG TABLET PO SCH (08:36)
[2019-07-15] MEDS: OMEGA-3/DHA/EPA/FISH OIL 1,000 MG CAPSULE PO SCH (08:36)
[2019-07-15 16:13] VITALS: BP 113/61
[2019-07-15] MEDS: DIVALPROEX SODIUM 500 MG DR TABLET PO SCH (21:45)
[2019-07-15] MEDS: ZOLPIDEM TARTRATE 10 MG TABLET PO PRN (21:46)
[2019-07-15] MEDS: OXYBUTYNIN CHLORIDE 5 MG ER TABLET PO SCH (21:46)
[2019-07-16 05:43] VITALS: BP 102/66
[2019-07-16 08:00] VITALS: BP 118/65
[2019-07-16] MEDS: ARIPiprazole 15 MG TABLET PO SCH (09:56)
[2019-07-16] MEDS: TRIHEXYPHENIDYL HCL 2 MG TABLET PO SCH ×2 (09:56→17:21)
[2019-07-16] MEDS: OMEGA-3/DHA/EPA/FISH OIL 1,000 MG CAPSULE PO SCH (10:36)
[2019-07-16 16:14] VITALS: BP 111/70
[2019-07-16] MEDS: DIVALPROEX SODIUM 500 MG DR TABLET PO SCH (21:30)
[2019-07-16] MEDS: OXYBUTYNIN CHLORIDE 5 MG ER TABLET PO SCH (21:31)
[2019-07-17 01:35] VITALS: BP 118/82
[2019-07-17] MEDS: ZOLPIDEM TARTRATE 10 MG TABLET PO PRN (02:14)
[2019-07-17 08:56] VITALS: BP 115/63
[2019-07-17] MEDS: TRIHEXYPHENIDYL HCL 2 MG TABLET PO SCH ×2 (09:00→16:23)
[2019-07-17] MEDS: OMEGA-3/DHA/EPA/FISH OIL 1,000 MG CAPSULE PO SCH (09:00)
[2019-07-17] MEDS: ARIPiprazole 15 MG TABLET PO SCH (09:00)
[2019-07-17] MEDS: NICOTINE 14 MG/24 HOUR PATCH TD PRN (12:16)
[2019-07-17] MEDS ORDERED: ARIP15TA2 PO (14:12)
[2019-07-17] MEDS ORDERED: DIVA500T52 PO (14:12)
[2019-07-17] MEDS ORDERED: TRIH2TAB3 PO (14:12)
[2019-07-17] MEDS ORDERED: OXYB5XL PO (14:19)
== END 2019-07-17 16:40 | disposition home or self-care (01) | DRG 885 ==
LOC: B2X 16:34 → UNDODISIN 06-30 22:11
PROVIDERS: ATTEND Psychiatry & Neurology Child & Adolescent Psychiatry
PROC: 3E0234Z Introduction of Serum, Toxoid and Vaccine into Muscle, Percutaneous Approach (ICD-10-PCS; principal; 2019-06-10)
DX: F25.9 Schizoaffective disorder, unspecified (principal); E03.9 Hypothyroidism, unspecified; F10.10 Alcohol abuse, uncomplicated; G43.909 Migraine, unspecified, not intractable, without status migrainosus; I10 Essential (primary) hypertension; J45.909 Unspecified asthma, uncomplicated; K21.9 Gastro-esophageal reflux disease without esophagitis; L02.529 Furuncle unspecified hand; M79.7 Fibromyalgia; Z23 Encounter for immunization
CPT/HCPCS: 83036; 84439; 84443; 87081; 90732

== ENCOUNTER 2020-04-06 17:56 | Emergency (ER) | payer MEDICARE, OTHER ==
[~2020-04-06] VITALS: Ht 157.5 cm; Wt 81.8 kg
[~2020-04-06 17:56] MED LIST changes: +ARIP15TA2 PO; -ARIP662S IM; +DIVA-80 PO; -DIVA500T52 PO; -NALT50TA PO; -NICO-704 TD; +OXYB5XL PO; +TRIH2TAB3 PO
[2020-04-06 17:58] VITALS: BP 137/92
[2020-04-06 19:13] LABS: COVID AG,FIA SOURCE NASOPHARYNGEAL
== END 2020-04-06 20:51 | disposition home or self-care (01) ==
LOC: EMS 17:58
DX: F31.9 Bipolar disorder, unspecified (principal); Z20.828 Contact with and (suspected) exposure to other viral communicable diseases; F17.210 Nicotine dependence, cigarettes, uncomplicated; F20.9 Schizophrenia, unspecified; Z88.0 Allergy status to penicillin; Z88.2 Allergy status to sulfonamides; Z79.899 Other long term (current) drug therapy
CPT/HCPCS: 87426; 99406; Z7502

== ENCOUNTER 2020-04-27 10:53 | Emergency (ER) | payer MEDICARE, OTHER ==
[~2020-04-27] VITALS: Ht 160 cm; Wt 72.5 kg
[~2020-04-27 10:53] MED LIST changes: -TRIH2TAB3 PO
[2020-04-27 11:07] VITALS: BP 128/71
== END 2020-04-27 11:23 | disposition home or self-care (01) ==
LOC: EMS 10:53
DX: F32.9 Major depressive disorder, single episode, unspecified (principal); J45.909 Unspecified asthma, uncomplicated; F20.9 Schizophrenia, unspecified; G43.909 Migraine, unspecified, not intractable, without status migrainosus; F17.210 Nicotine dependence, cigarettes, uncomplicated; Z88.0 Allergy status to penicillin; Z88.2 Allergy status to sulfonamides; Z88.8 Allergy status to other drugs, medicaments and biological substances
CPT/HCPCS: Z7502

== ENCOUNTER 2021-09-14 13:59 | Inpatient (IN) | payer MEDICARE, MEDICAID ==
[~2021-09-14] VITALS: Ht 157.5 cm; Wt 78.9 kg
[~2021-09-14 13:59] MED LIST changes: -ARIP15TA2 PO; +ARIP15TA27 PO; +OXYB-34 PO; -OXYB5XL PO
[2021-09-14] MEDS ORDERED: QUEtiapine FUMARATE 100 MG TABLET PO PRN (15:15)
[2021-09-14] MEDS ORDERED: ZOLPIDEM TARTRATE 10 MG TABLET PO PRN (15:15)
[2021-09-14] MEDS ORDERED: LORazepam 1 MG TABLET PO PRN (15:15)
[2021-09-14] MEDS ORDERED: -PHARMACY VACCINE NOTE- MISC ONE (16:45)
[2021-09-14 17:31] VITALS: BP 112/77
[2021-09-14 20:06] LABS: GLUCOMETER DEV NAME(LOC) POC.BV
[2021-09-15 01:02] VITALS: BP 119/78
[2021-09-15 08:08] VITALS: BP 112/58
[2021-09-15] MEDS: NICOTINE 14 MG/24 HOUR PATCH TD SCH (08:11)
[2021-09-15 08:16] LABS: ALANINE AMINOTRANSFERASE 20 U/L (12-78); ALBUMIN 3.1 g/dL (3.4-5.0); ALKALINE PHOSPHATASE 87 U/L (46-116); ANION GAP 9 mmol/L (8-16); ASPARTATE AMINOTRANSFERASE 17 U/L (15-37); BILIRUBIN,TOTAL 0.3 mg/dL (0.1-1.0); CALCIUM, TOTAL 8.9 mg/dL (8.8-10.5); CARBON DIOXIDE 23 mmol/L (22-29); CHLORIDE 107 mmol/L (98-107); CHOL/HDL RATIO 5.1 (3.9-5.7); CHOLESTEROL 194 mg/dL (131-200); CREATININE 0.64 mg/dL (0.60-1.30); FREE T4 (FREE THYROXINE) 1.29 ng/dL (0.76-1.46); GLOMERULAR FILTR. RATE CALC > 60 mL/min (>60); GLUCOSE,RANDOM 94 mg/dL (70-110); HDL CHOLESTEROL 38 mg/dL (40-60); LDL CHOL (CALC.) 133 mg/dL (0-130); SODIUM SERUM 139 mmol/L (136-145); THYROID STIMULATING HORMONE 1.03 uIU/mL (0.36-3.74); TRIGLYCERIDES 117 mg/dL (15-150); UREA NITROGEN, BLOOD 13 mg/dL (7-18)
[2021-09-15] MEDS: ARIPiprazole 15 MG TABLET PO SCH (10:50)
[2021-09-15] MEDS ORDERED: ALBUTEROL SULFATE HFA 90 MCG/PUFF 8 GM INHALER IH PRN (12:45)
[2021-09-15] MEDS ORDERED: ACETAMINOPHEN 325 MG TABLET PO PRN (12:45)
[2021-09-15] MEDS ORDERED: LOPERAMIDE HCL 2 MG CAPSULE PO PRN (12:45)
[2021-09-15] MEDS ORDERED: NICOTINE 14 MG/24 HOUR PATCH TD PRN (12:45)
[2021-09-15] MEDS ORDERED: CloNIDine HCL 0.1 MG TABLET PO PRN (12:45)
[2021-09-15] MEDS ORDERED: ONDANSETRON HCL 4 MG TABLET PO PRN (12:45)
[2021-09-15] MEDS ORDERED: MAGNESIUM HYDROXIDE SUSPENSION 30 ML UDCUP PO PRN (12:45)
[2021-09-15] MEDS ORDERED: PETROLATUM,WHITE 28 GM JELLY TP PRN (12:45)
[2021-09-15] MEDS ORDERED: GuaiFENesin/D-METHORPHAN [SUGAR-FREE] 200-20MG/10 ML SYRUP UDCUP PO PRN (12:45)
[2021-09-15] MEDS ORDERED: DOCUSATE SODIUM 100 MG CAPSULE PO PRN (12:45)
[2021-09-15] MEDS ORDERED: MAG HYDROX/AL HYDROX/SIMETH ES 30 ML SUSPENSION UDCUP PO PRN (12:45)
[2021-09-15] MEDS: VENLAFAXINE HCL 150 MG ER CAPSULE PO SCH (14:21)
[2021-09-15 16:05] VITALS: BP 117/76
[2021-09-15] MEDS: OXYBUTYNIN CHLORIDE 5 MG ER TABLET PO SCH (20:33)
[2021-09-15] MEDS: DIVALPROEX SODIUM 500 MG DR TABLET PO SCH (20:33)
[2021-09-15] MEDS: TraZODone HCL 50 MG TABLET PO SCH (20:33)
[2021-09-16 00:14] VITALS: BP 134/82
[2021-09-16 07:07] LABS: BASOPHILS % (AUTO) 0.4 % (0.0-2.0); EOSINOPHILS % (AUTO) 4.1 % (1.0-6.0); HEMATOCRIT 41.3 % (36-46); HEMOGLOBIN 14.1 g/dL (12.0-16.0); LYMPHOCYTES # (AUTO) 2.2 K/uL (1.0-4.8); LYMPHOCYTES % (AUTO) 38.7 % (22.0-44.0); MEAN CORPUSCULAR HEMOGLOBIN 29.9 pg (26.0-34.0); MEAN CORPUSCULAR HGB CONC 34.2 G/dL (31.0-37.0); MEAN CORPUSCULAR VOLUME 88 fL (80-100); MONOCYTES # (AUTO) 0.4 K/uL (0.1-1.0); MONOCYTES % (AUTO) 6.6 % (2.0-9.0); NEUTROPHILS # (AUTO) 2.9 K/uL (1.8-7.7); NEUTROPHILS % (AUTO) 50.2 % (40.0-70.0); PLATELET COUNT (AUTO) 224 K/uL (150-450); RED BLOOD CELL COUNT(AUTO) 4.72 MIL/uL (4.00-5.20); RED CELL DISTRIBUTION WIDTH 13.6 % (11.5-14.5)
[2021-09-16 07:59] LABS: AMPHET/METH SCREEN,URINE NEGATIVE (NEGATIVE); BARBITURATE SCREEN, URINE NEGATIVE (NEGATIVE); BENZODIAZEPINES SCREEN,URINE NEGATIVE (NEGATIVE); CANNABINOID SCREEN,URINE NEGATIVE (NEGATIVE); COCAINE SCREEN,URINE NEGATIVE (NEGATIVE); METHADONE SCREEN, URINE NEGATIVE (NEGATIVE); OPIATE SCREEN,URINE NEGATIVE (NEGATIVE)
[2021-09-16 08:01] LABS: PHENCYCLIDINE SCREEN,URINE NEGATIVE (NEGATIVE)
[2021-09-16 08:09] VITALS: BP 122/75
[2021-09-16] MEDS: VENLAFAXINE HCL 150 MG ER CAPSULE PO SCH (08:09)
[2021-09-16] MEDS: NICOTINE 14 MG/24 HOUR PATCH TD SCH (08:09)
[2021-09-16] MEDS: ARIPiprazole 15 MG TABLET PO SCH (08:09)
[2021-09-16 16:36] VITALS: BP 118/67
[2021-09-16] MEDS: TraZODone HCL 50 MG TABLET PO SCH (20:29)
[2021-09-16] MEDS: OXYBUTYNIN CHLORIDE 5 MG ER TABLET PO SCH (20:29)
[2021-09-16] MEDS: DIVALPROEX SODIUM 500 MG DR TABLET PO SCH (20:30)
[2021-09-17 05:47] VITALS: BP 118/72
[2021-09-17 08:12] VITALS: BP 115/78
[2021-09-17] MEDS: ARIPiprazole 15 MG TABLET PO SCH (08:29)
[2021-09-17] MEDS: NICOTINE 14 MG/24 HOUR PATCH TD SCH (08:29)
[2021-09-17] MEDS: VENLAFAXINE HCL 150 MG ER CAPSULE PO SCH (08:29)
[2021-09-17 16:13] VITALS: BP 111/73
[2021-09-17] MEDS: DIVALPROEX SODIUM 500 MG DR TABLET PO SCH (20:33)
[2021-09-17] MEDS: TraZODone HCL 50 MG TABLET PO SCH (20:33)
[2021-09-17] MEDS: OXYBUTYNIN CHLORIDE 5 MG ER TABLET PO SCH (20:33)
[2021-09-18 00:23] VITALS: BP 111/67
[2021-09-18] MEDS: NICOTINE 14 MG/24 HOUR PATCH TD SCH (07:50)
[2021-09-18] MEDS: ARIPiprazole 15 MG TABLET PO SCH (07:50)
[2021-09-18] MEDS: VENLAFAXINE HCL 150 MG ER CAPSULE PO SCH (07:50)
[2021-09-18 09:12] VITALS: BP 114/72
[2021-09-18 13:38] LABS: GLUCOMETER DEV NAME(LOC) POC.BV
[2021-09-18] MEDS: IBUPROFEN 400 MG TABLET PO PRN (15:20)
[2021-09-18 16:07] VITALS: BP 105/69
[2021-09-18] MEDS: TraZODone HCL 50 MG TABLET PO SCH (20:12)
[2021-09-18] MEDS: DIVALPROEX SODIUM 500 MG DR TABLET PO SCH (20:13)
[2021-09-18] MEDS: OXYBUTYNIN CHLORIDE 5 MG ER TABLET PO SCH (20:13)
[2021-09-19 05:36] VITALS: BP 110/67
[2021-09-19 08:14] VITALS: BP 109/67
[2021-09-19] MEDS: NICOTINE 14 MG/24 HOUR PATCH TD SCH (08:18)
[2021-09-19] MEDS: ARIPiprazole 15 MG TABLET PO SCH (08:19)
[2021-09-19] MEDS: VENLAFAXINE HCL 150 MG ER CAPSULE PO SCH (08:19)
[2021-09-19 16:07] VITALS: BP 107/70
[2021-09-19] MEDS: IBUPROFEN 400 MG TABLET PO PRN (16:53)
[2021-09-19] MEDS: TraZODone HCL 50 MG TABLET PO SCH (20:33)
[2021-09-19] MEDS: DIVALPROEX SODIUM 500 MG DR TABLET PO SCH (20:34)
[2021-09-19] MEDS: OXYBUTYNIN CHLORIDE 5 MG ER TABLET PO SCH (20:34)
[2021-09-20 00:39] VITALS: BP 101/68
[2021-09-20 08:58] VITALS: BP 100/64
[2021-09-20] MEDS: VENLAFAXINE HCL 150 MG ER CAPSULE PO SCH (09:02)
[2021-09-20] MEDS: ARIPiprazole 15 MG TABLET PO SCH (09:03)
[2021-09-20] MEDS: NICOTINE 14 MG/24 HOUR PATCH TD SCH (09:03)
[2021-09-20 16:18] VITALS: BP 96/61
[2021-09-20] MEDS: IBUPROFEN 400 MG TABLET PO PRN (16:35)
[2021-09-20 17:15] VITALS: BP 102/74
[2021-09-20] MEDS: TraZODone HCL 50 MG TABLET PO SCH (20:12)
[2021-09-20] MEDS: OXYBUTYNIN CHLORIDE 5 MG ER TABLET PO SCH (20:13)
[2021-09-20] MEDS: DIVALPROEX SODIUM 500 MG DR TABLET PO SCH (20:13)
[2021-09-21 06:45] VITALS: BP 90/60
[2021-09-21 08:22] VITALS: BP 102/63
[2021-09-21] MEDS: VENLAFAXINE HCL 150 MG ER CAPSULE PO SCH (08:46)
[2021-09-21] MEDS: NICOTINE 14 MG/24 HOUR PATCH TD SCH (08:46)
[2021-09-21] MEDS: ARIPiprazole 15 MG TABLET PO SCH (08:46)
[2021-09-21 16:06] VITALS: BP 135/65
[2021-09-21] MEDS: IBUPROFEN 400 MG TABLET PO PRN (16:08)
[2021-09-21] MEDS: OXYBUTYNIN CHLORIDE 5 MG ER TABLET PO SCH (20:42)
[2021-09-21] MEDS: DIVALPROEX SODIUM 500 MG DR TABLET PO SCH (20:42)
[2021-09-21] MEDS: TraZODone HCL 50 MG TABLET PO SCH (20:42)
[2021-09-22 07:03] VITALS: BP 125/68
[2021-09-22] MEDS: ARIPiprazole 15 MG TABLET PO SCH (08:11)
[2021-09-22] MEDS: NICOTINE 14 MG/24 HOUR PATCH TD SCH (08:11)
[2021-09-22] MEDS: VENLAFAXINE HCL 150 MG ER CAPSULE PO SCH (08:11)
[2021-09-22 08:35] VITALS: BP_SYST 110; BP_SYST 130; BP_DIAS 68; BP_DIAS 81
[2021-09-22] MEDS ORDERED: VENLAFAXINE HCL 75 MG ER CAPSULE PO ONE (09:45)
[2021-09-22] MEDS ORDERED: ARIPiprazole 5 MG TABLET PO ONE (09:45)
[2021-09-22 16:04] VITALS: BP 114/74
[2021-09-22] MEDS: OXYBUTYNIN CHLORIDE 5 MG ER TABLET PO SCH (21:00)
[2021-09-22] MEDS: DIVALPROEX SODIUM 500 MG DR TABLET PO SCH (21:00)
[2021-09-22] MEDS: TraZODone HCL 50 MG TABLET PO SCH (21:00)
[2021-09-23 06:58] VITALS: BP 118/64
[2021-09-23 08:06] VITALS: BP 107/61
[2021-09-23] MEDS: ARIPiprazole 10 MG TABLET PO SCH (08:22)
[2021-09-23] MEDS: VENLAFAXINE HCL 75 MG ER CAPSULE PO SCH (08:22)
[2021-09-23] MEDS: NICOTINE 14 MG/24 HOUR PATCH TD SCH (08:22)
[2021-09-23 16:43] VITALS: BP 108/70
[2021-09-23] MEDS: DIVALPROEX SODIUM 500 MG DR TABLET PO SCH (20:11)
[2021-09-23] MEDS: TraZODone HCL 50 MG TABLET PO SCH (20:12)
[2021-09-23] MEDS: OXYBUTYNIN CHLORIDE 5 MG ER TABLET PO SCH (20:12)
[2021-09-24 04:54] VITALS: BP 111/62
[2021-09-24] MEDS: NICOTINE 14 MG/24 HOUR PATCH TD SCH (07:33)
[2021-09-24] MEDS: VENLAFAXINE HCL 75 MG ER CAPSULE PO SCH (07:34)
[2021-09-24] MEDS: ARIPiprazole 10 MG TABLET PO SCH (07:34)
[2021-09-24 08:05] VITALS: BP 104/71
[2021-09-24] MEDS ORDERED: TRAZ-252 PO (11:04)
[2021-09-24] MEDS ORDERED: DIVA-112 PO (11:04)
[2021-09-24] MEDS ORDERED: VENL-67 PO (11:04)
[2021-09-24] MEDS ORDERED: ARIP10TA38 PO (11:04)
== END 2021-09-24 13:00 | disposition home or self-care (01) | DRG 885 ==
LOC: B2X 14:59
PROVIDERS: ADMIT Psychiatry & Neurology Child & Adolescent Psychiatry; ATTEND Psychiatry & Neurology Child & Adolescent Psychiatry
DX: F25.1 Schizoaffective disorder, depressive type (principal); E03.9 Hypothyroidism, unspecified; F41.9 Anxiety disorder, unspecified; I10 Essential (primary) hypertension; J45.909 Unspecified asthma, uncomplicated; Z20.822 Contact with and (suspected) exposure to COVID-19; M79.7 Fibromyalgia; F19.10 Other psychoactive substance abuse, uncomplicated; R32 Unspecified urinary incontinence; Z91.19 Patient's noncompliance with other medical treatment and regimen; Z88.0 Allergy status to penicillin; Z88.2 Allergy status to sulfonamides; Z88.8 Allergy status to other drugs, medicaments and biological substances; Z71.51 Drug abuse counseling and surveillance of drug abuser
CPT/HCPCS: 80053; 80061; 80164; 80307; 83036; 84439; 84443; 84703; 85025

== ENCOUNTER 2021-12-29 17:25 | Inpatient (IN) | payer MEDICARE, MEDICAID ==
[~2021-12-29] VITALS: Ht 162.6 cm; Wt 75.3 kg
[~2021-12-29 17:25] MED LIST changes: -OXYB-34 PO
[2021-12-29] MEDS ORDERED: ZOLPIDEM TARTRATE 10 MG TABLET PO PRN (18:15)
[2021-12-29] MEDS ORDERED: MAGNESIUM HYDROXIDE SUSPENSION 30 ML UDCUP PO PRN (18:15)
[2021-12-29] MEDS ORDERED: HydrOXYzine PAMOATE 50 MG CAPSULE PO PRN (18:15)
[2021-12-29] MEDS ORDERED: PROMETHAZINE HCL 25 MG TABLET PO PRN (18:15)
[2021-12-29] MEDS ORDERED: TUBERCULIN, PURIFIED PROTEIN DERIVATIVE 5 TU/0.1 ML SYRINGE ID ONE (18:15)
[2021-12-29] MEDS ORDERED: LOPERAMIDE HCL 2 MG CAPSULE PO PRN (18:15)
[2021-12-29] MEDS ORDERED: GuaiFENesin/D-METHORPHAN [SUGAR-FREE] 200-20MG/10 ML SYRUP UDCUP PO PRN (18:15)
[2021-12-29] MEDS ORDERED: MAG HYDROX/AL HYDROX/SIMETH ES 30 ML SUSPENSION UDCUP PO PRN (18:15)
[2021-12-29] MEDS ORDERED: ACETAMINOPHEN 325 MG TABLET PO PRN (18:15)
[2021-12-29 18:36] LABS: GLUCOMETER DEV NAME(LOC) POC.BV
[2021-12-29 19:03] VITALS: BP 128/71
[2021-12-29] MEDS ORDERED: -PHARMACY VACCINE NOTE- MISC ONE (19:15)
[2021-12-29] MEDS: THIAMINE 100 MG TABLET PO SCH (19:27)
[2021-12-29] MEDS: DIVALPROEX SODIUM 500 MG ER TABLET PO SCH (20:54)
[2021-12-29] MEDS: OLANZapine 5 MG RAPDIS TABLET PO SCH (20:55)
[2021-12-29] MEDS: LORazepam 2 MG TABLET PO PRN (21:01)
[2021-12-30 07:26] LABS: BASOPHILS % (AUTO) 0.5 % (0.0-2.0); EOSINOPHILS % (AUTO) 4.9 % (1.0-6.0); HEMATOCRIT 40.4 % (36-46); HEMOGLOBIN 13.8 g/dL (12.0-16.0); LYMPHOCYTES # (AUTO) 3.6 K/uL (1.0-4.8); LYMPHOCYTES % (AUTO) 41.2 % (22.0-44.0); MEAN CORPUSCULAR HEMOGLOBIN 30.8 pg (26.0-34.0); MEAN CORPUSCULAR HGB CONC 34.2 G/dL (31.0-37.0); MEAN CORPUSCULAR VOLUME 90 fL (80-100); MONOCYTES # (AUTO) 0.6 K/uL (0.1-1.0); MONOCYTES % (AUTO) 7.1 % (2.0-9.0); NEUTROPHILS % (AUTO) 46.3 % (40.0-70.0); PLATELET COUNT (AUTO) 222 K/uL (150-450); RED BLOOD CELL COUNT(AUTO) 4.48 MIL/uL (4.00-5.20); RED CELL DISTRIBUTION WIDTH 13.8 % (11.5-14.5)
[2021-12-30 07:52] LABS: HEMOGLOBIN A1C 5.3 % (3.8-5.6)
[2021-12-30 08:01] LABS: ALANINE AMINOTRANSFERASE 22 U/L (12-78); ALBUMIN 2.9 g/dL (3.4-5.0); ALKALINE PHOSPHATASE 100 U/L (46-116); ANION GAP 10 mmol/L (8-16); ASPARTATE AMINOTRANSFERASE 12 U/L (15-37); BILIRUBIN,TOTAL 0.2 mg/dL (0.1-1.0); CALCIUM, TOTAL 8.4 mg/dL (8.8-10.5); CARBON DIOXIDE 25 mmol/L (22-29); CHLORIDE 105 mmol/L (98-107); CHOL/HDL RATIO 3.7 (3.9-5.7); CHOLESTEROL 164 mg/dL (131-200); CREATININE 0.69 mg/dL (0.60-1.30); GLUCOSE,RANDOM 78 mg/dL (70-110); HCG,QUANTITATIVE < 1 mIU/mL (0-6); HDL CHOLESTEROL 44 mg/dL (40-60); LDL CHOL (CALC.) 94 mg/dL (0-130); SODIUM SERUM 140 mmol/L (136-145); THYROID STIMULATING HORMONE 1.42 uIU/mL (0.36-3.74); TOTAL PROTEIN, SERUM 6.7 g/dL (6.4-8.2); TRIGLYCERIDES 128 mg/dL (15-150); UREA NITROGEN, BLOOD 11 mg/dL (7-18); VALPROIC ACID 34 mcg/mL (50-100)
[2021-12-30 08:02] LABS: GLOMERULAR FILTR. RATE CALC > 60 mL/min (>60)
[2021-12-30] MEDS ORDERED: PALIPERIDONE PALMITATE 234 MG/1.5 ML SYRINGE IM ONE (09:00)
[2021-12-30] MEDS: THIAMINE 100 MG TABLET PO SCH ×2 (09:49→16:20)
[2021-12-30] MEDS: MULTIVITAMINS WITH MINERALS, THERAPEUTIC TABLET PO SCH (09:49)
[2021-12-30] MEDS: FOLIC ACID 1 MG TABLET PO SCH (09:49)
[2021-12-30] MEDS: LORazepam 2 MG TABLET PO PRN (09:52)
[2021-12-30] MEDS: OLANZapine 5 MG RAPDIS TABLET PO PRN ×2 (09:52→10:26)
[2021-12-30] MEDS: NICOTINE 21 MG/24 HOUR PATCH TD SCH (09:59)
[2021-12-30 11:43] VITALS: BP 114/75
[2021-12-30 12:49] VITALS: BP 109/79
[2021-12-30] MEDS: DIVALPROEX SODIUM 500 MG ER TABLET PO SCH (19:56)
[2021-12-30] MEDS: OLANZapine 5 MG RAPDIS TABLET PO SCH (19:57)
[2021-12-30 20:15] VITALS: BP 120/76
[2021-12-31] MEDS: FOLIC ACID 1 MG TABLET PO SCH (08:18)
[2021-12-31] MEDS: MULTIVITAMINS WITH MINERALS, THERAPEUTIC TABLET PO SCH (08:18)
[2021-12-31] MEDS: THIAMINE 100 MG TABLET PO SCH ×2 (08:18→16:57)
[2021-12-31] MEDS: NICOTINE 21 MG/24 HOUR PATCH TD SCH (08:20)
[2021-12-31] MEDS: LORazepam 2 MG TABLET PO PRN (08:40)
[2021-12-31 08:55] VITALS: BP 116/81
[2021-12-31] MEDS: IBUPROFEN 400 MG TABLET PO PRN (20:08)
[2021-12-31 20:10] VITALS: BP 118/78
[2021-12-31] MEDS: DIVALPROEX SODIUM 500 MG ER TABLET PO SCH (20:30)
[2022-01-01 01:53] VITALS: BP 125/79
[2022-01-01] MEDS: IBUPROFEN 400 MG TABLET PO PRN ×2 (02:00→08:11)
[2022-01-01] MEDS: MULTIVITAMINS WITH MINERALS, THERAPEUTIC TABLET PO SCH (08:10)
[2022-01-01] MEDS: FOLIC ACID 1 MG TABLET PO SCH (08:10)
[2022-01-01] MEDS: THIAMINE 100 MG TABLET PO SCH ×2 (08:10→16:46)
[2022-01-01 08:11] VITALS: BP 115/81
[2022-01-01] MEDS: NICOTINE 21 MG/24 HOUR PATCH TD SCH (08:11)
[2022-01-01] MEDS: LORazepam 2 MG TABLET PO PRN (08:11)
[2022-01-01] MEDS ORDERED: OMEG-135 PO (14:44)
[2022-01-01] MEDS ORDERED: MELA5TAB40 PO (14:44)
[2022-01-01] MEDS ORDERED: PALI117D IM (14:44)
[2022-01-01] MEDS ORDERED: NALT50TA6 PO (14:44)
[2022-01-01] MEDS ORDERED: DIVA-80 PO (14:44)
[2022-01-01 16:28] VITALS: BP 116/80
[2022-01-01] MEDS ORDERED: DICLOFENAC SODIUM 1% 100 GM GEL [2GM] TP PRN (19:30)
[2022-01-01 20:05] VITALS: BP 112/78
[2022-01-01] MEDS: DIVALPROEX SODIUM 500 MG ER TABLET PO SCH (20:25)
[2022-01-01] MEDS ORDERED: MELATONIN 5 MG TABLET PO SCH (21:00)
[2022-01-02] MEDS: THIAMINE 100 MG TABLET PO SCH ×2 (07:48→17:09)
[2022-01-02] MEDS: NICOTINE 21 MG/24 HOUR PATCH TD SCH (07:48)
[2022-01-02] MEDS: MULTIVITAMINS WITH MINERALS, THERAPEUTIC TABLET PO SCH (07:48)
[2022-01-02] MEDS: FOLIC ACID 1 MG TABLET PO SCH (07:48)
[2022-01-02] MEDS ORDERED: NALTREXONE HCL 50 MG TABLET PO SCH (09:00)
[2022-01-02] MEDS ORDERED: OMEGA-3/DHA/EPA/FISH OIL 1,000 MG CAPSULE PO SCH (09:00)
[2022-01-02] MEDS: LORazepam 2 MG TABLET PO PRN (09:03)
[2022-01-02] MEDS: IBUPROFEN 400 MG TABLET PO PRN (09:04)
[2022-01-02 09:05] VITALS: BP 109/70
[2022-01-03] MEDS ORDERED: PALIPERIDONE PALMITATE 156 MG/ML SYRINGE IM ONE (09:00)
[2022-01-29] MEDS ORDERED: PALIPERIDONE PALMITATE 117 MG/0.75 ML SYRINGE IM SCH (09:00)
== END 2022-01-02 18:05 | disposition home or self-care (01) | DRG 885 ==
LOC: B2X 18:12
PROVIDERS: ADMIT Psychiatry & Neurology Psychiatry; ATTEND Psychiatry & Neurology Psychiatry
DX: F20.9 Schizophrenia, unspecified (principal); R45.851 Suicidal ideations; Z20.822 Contact with and (suspected) exposure to COVID-19; F32.A Depression, unspecified; F41.9 Anxiety disorder, unspecified; F51.05 Insomnia due to other mental disorder; J44.9 Chronic obstructive pulmonary disease, unspecified; M79.7 Fibromyalgia; Z55.9 Problems related to education and literacy, unspecified; Z59.9 Problem related to housing and economic circumstances, unspecified; Z88.8 Allergy status to other drugs, medicaments and biological substances; Z63.9 Problem related to primary support group, unspecified; Z65.3 Problems related to other legal circumstances; Z87.891 Personal history of nicotine dependence; Z88.0 Allergy status to penicillin; Z88.2 Allergy status to sulfonamides
CPT/HCPCS: 80053; 80061; 80164; 83036; 84439; 84443; 84702; 85025; 86592; Q9967

== ENCOUNTER 2022-01-04 09:38 | Inpatient (IN) | payer MEDICARE, MEDICAID ==
[~2022-01-04] VITALS: Ht 162.6 cm; Wt 75.3 kg
[~2022-01-04 09:38] MED LIST changes: -ARIP15TA27 PO; +MELA5TAB40 PO; +NALT50TA6 PO; +OMEG-135 PO; +PALI117D IM
[2022-01-04] MEDS ORDERED: QUEtiapine FUMARATE 100 MG TABLET PO PRN (12:45)
[2022-01-04 13:41] LABS: GLUCOMETER DEV NAME(LOC) POC.BV
[2022-01-04 14:28] VITALS: BP 122/74
[2022-01-04 14:31] VITALS: BP 122/74
[2022-01-04] MEDS ORDERED: -PHARMACY VACCINE NOTE- MISC ONE (14:45)
[2022-01-04] MEDS: LORazepam 2 MG TABLET PO PRN (18:22)
[2022-01-04] MEDS: ZOLPIDEM TARTRATE 10 MG TABLET PO PRN (21:02)
[2022-01-04 21:37] VITALS: BP 120/74
[2022-01-05] MEDS: LORazepam 2 MG TABLET PO PRN ×2 (05:34→13:58)
[2022-01-05] MEDS: NALTREXONE HCL 50 MG TABLET PO SCH (08:19)
[2022-01-05 08:33] LABS: BASOPHILS % (AUTO) 0.7 % (0.0-2.0); EOSINOPHILS % (AUTO) 5.4 % (1.0-6.0); HEMATOCRIT 38.5 % (36-46); HEMOGLOBIN 12.9 g/dL (12.0-16.0); LYMPHOCYTES # (AUTO) 2.5 K/uL (1.0-4.8); LYMPHOCYTES % (AUTO) 34.5 % (22.0-44.0); MEAN CORPUSCULAR HEMOGLOBIN 30.5 pg (26.0-34.0); MEAN CORPUSCULAR HGB CONC 33.6 G/dL (31.0-37.0); MEAN CORPUSCULAR VOLUME 91 fL (80-100); MONOCYTES # (AUTO) 0.5 K/uL (0.1-1.0); MONOCYTES % (AUTO) 7.3 % (2.0-9.0); NEUTROPHILS # (AUTO) 3.8 K/uL (1.8-7.7); NEUTROPHILS % (AUTO) 52.1 % (40.0-70.0); PLATELET COUNT (AUTO) 191 K/uL (150-450); RED BLOOD CELL COUNT(AUTO) 4.25 MIL/uL (4.00-5.20); RED CELL DISTRIBUTION WIDTH 13.7 % (11.5-14.5)
[2022-01-05 08:44] VITALS: BP 103/60
[2022-01-05 08:58] LABS: ALANINE AMINOTRANSFERASE 46 U/L (12-78); ALBUMIN 2.8 g/dL (3.4-5.0); ALKALINE PHOSPHATASE 85 U/L (46-116); ANION GAP 11 mmol/L (8-16); ASPARTATE AMINOTRANSFERASE 31 U/L (15-37); BILIRUBIN,TOTAL 0.2 mg/dL (0.1-1.0); CARBON DIOXIDE 24 mmol/L (22-29); CHLORIDE 102 mmol/L (98-107); CHOLESTEROL 183 mg/dL (131-200); CREATININE 0.69 mg/dL (0.60-1.30); FREE T4 (FREE THYROXINE) 0.77 ng/dL (0.76-1.46); GLOMERULAR FILTR. RATE CALC > 60 mL/min (>60); GLUCOSE,RANDOM 118 mg/dL (70-110); HDL CHOLESTEROL 46 mg/dL (40-60); LDL CHOL (CALC.) 108 mg/dL (0-130); SODIUM SERUM 137 mmol/L (136-145); THYROID STIMULATING HORMONE 1.81 uIU/mL (0.36-3.74); TOTAL PROTEIN, SERUM 6.3 g/dL (6.4-8.2); TRIGLYCERIDES 144 mg/dL (15-150); UREA NITROGEN, BLOOD 14 mg/dL (7-18)
[2022-01-05] MEDS ORDERED: OMEGA-3/DHA/EPA/FISH OIL 1,000 MG CAPSULE PO SCH (09:00)
[2022-01-05] MEDS ORDERED: DIVALPROEX SODIUM 500 MG ER TABLET PO SCH (09:00)
[2022-01-05] MEDS ORDERED: ACETAMINOPHEN 325 MG TABLET PO PRN (09:00)
[2022-01-05] MEDS: IBUPROFEN 600 MG TABLET PO PRN ×2 (09:21→19:11)
[2022-01-05] MEDS: DOCUSATE SODIUM 250 MG CAPSULE PO SCH (13:17)
[2022-01-05] MEDS: TraMADol HCL 50 MG TABLET PO PRN (13:18)
[2022-01-05 14:06] LABS: HEMOGLOBIN A1C 5.4 % (3.8-5.6)
[2022-01-05] MEDS ORDERED: OLANZapine 5 MG RAPDIS TABLET PO PRN (15:15)
[2022-01-05] MEDS: NICOTINE 21 MG/24 HOUR PATCH TD SCH (17:29)
[2022-01-05 19:09] VITALS: BP 117/71
[2022-01-05] MEDS: MELATONIN 5 MG TABLET PO SCH (20:33)
[2022-01-05] MEDS: OLANZapine 5 MG RAPDIS TABLET PO SCH (20:33)
[2022-01-05 20:44] VITALS: BP 135/79
[2022-01-06 02:35] VITALS: BP 118/76
[2022-01-06] MEDS: ZOLPIDEM TARTRATE 10 MG TABLET PO PRN (02:43)
[2022-01-06] MEDS: TraMADol HCL 50 MG TABLET PO PRN ×2 (02:45→16:19)
[2022-01-06 06:15] VITALS: BP 108/76
[2022-01-06] MEDS: IBUPROFEN 600 MG TABLET PO PRN (06:25)
[2022-01-06] MEDS ORDERED: NALTREXONE HCL 50 MG TABLET PO SCH (09:00)
[2022-01-06 09:31] VITALS: BP 106/68
[2022-01-06] MEDS: NALTREXONE HCL 50 MG TABLET PO SCH (10:01)
[2022-01-06] MEDS: OMEGA-3/DHA/EPA/FISH OIL 1,000 MG CAPSULE PO SCH (10:01)
[2022-01-06] MEDS: NICOTINE 21 MG/24 HOUR PATCH TD SCH (10:02)
[2022-01-06] MEDS: DOCUSATE SODIUM 250 MG CAPSULE PO SCH (10:02)
[2022-01-06] MEDS: DIVALPROEX SODIUM 500 MG ER TABLET PO SCH (10:02)
[2022-01-06] MEDS ORDERED: MAGNESIUM HYDROXIDE SUSPENSION 30 ML UDCUP PO PRN (15:45)
[2022-01-06] MEDS: LORazepam 2 MG TABLET PO PRN (16:14)
[2022-01-06 16:19] VITALS: BP 121/80
[2022-01-06 20:03] VITALS: BP 115/67
[2022-01-06] MEDS: OLANZapine 5 MG RAPDIS TABLET PO SCH (20:28)
[2022-01-06] MEDS: MELATONIN 5 MG TABLET PO SCH (20:31)
[2022-01-06] MEDS ORDERED: DULoxetine HCL 20 MG CAPSULE PO SCH (21:00)
[2022-01-07] MEDS: TraMADol HCL 50 MG TABLET PO PRN ×2 (00:26→10:19)
[2022-01-07 00:28] VITALS: BP 113/82
[2022-01-07] MEDS: LORazepam 2 MG TABLET PO PRN ×2 (04:11→10:19)
[2022-01-07 08:06] VITALS: BP 115/66
[2022-01-07] MEDS: NICOTINE 21 MG/24 HOUR PATCH TD SCH (08:27)
[2022-01-07] MEDS: NALTREXONE HCL 50 MG TABLET PO SCH (08:27)
[2022-01-07] MEDS: DOCUSATE SODIUM 250 MG CAPSULE PO SCH (08:28)
[2022-01-07] MEDS: DIVALPROEX SODIUM 500 MG ER TABLET PO SCH (08:28)
[2022-01-07] MEDS: OMEGA-3/DHA/EPA/FISH OIL 1,000 MG CAPSULE PO SCH (08:28)
[2022-01-07 10:23] VITALS: BP 121/64
[2022-01-07 20:06] VITALS: BP 122/73
[2022-01-07] MEDS: MELATONIN 5 MG TABLET PO SCH (20:48)
[2022-01-07] MEDS: DULoxetine HCL 30 MG CAPSULE PO SCH (20:48)
[2022-01-07] MEDS: OLANZapine 5 MG RAPDIS TABLET PO SCH (20:49)
[2022-01-08 02:30] VITALS: BP 113/83
[2022-01-08] MEDS: ZOLPIDEM TARTRATE 10 MG TABLET PO PRN (02:32)
[2022-01-08] MEDS: TraMADol HCL 50 MG TABLET PO PRN ×2 (02:32→16:00)
[2022-01-08] MEDS: DOCUSATE SODIUM 250 MG CAPSULE PO SCH (08:25)
[2022-01-08] MEDS: NALTREXONE HCL 50 MG TABLET PO SCH (08:26)
[2022-01-08] MEDS: OMEGA-3/DHA/EPA/FISH OIL 1,000 MG CAPSULE PO SCH (08:26)
[2022-01-08] MEDS: DIVALPROEX SODIUM 500 MG ER TABLET PO SCH (08:26)
[2022-01-08] MEDS: NICOTINE 21 MG/24 HOUR PATCH TD SCH (08:26)
[2022-01-08 08:30] VITALS: BP 122/77
[2022-01-08] MEDS: LORazepam 2 MG TABLET PO PRN (15:55)
[2022-01-08] MEDS ORDERED: DULO-114 PO (16:30)
[2022-01-08] MEDS ORDERED: DIVA-80 PO (16:30)
[2022-01-08] MEDS ORDERED: MELA5TAB40 PO (16:30)
[2022-01-08] MEDS ORDERED: NALT50TA PO (16:32)
[2022-01-08] MEDS ORDERED: OMEG-135 PO (16:32)
[2022-01-08] MEDS ORDERED: PALI117D IM (16:36)
[2022-01-08] MEDS: MELATONIN 5 MG TABLET PO SCH (20:06)
[2022-01-08] MEDS: OLANZapine 5 MG RAPDIS TABLET PO SCH (20:06)
[2022-01-08] MEDS: DULoxetine HCL 30 MG CAPSULE PO SCH (20:06)
[2022-01-08 20:07] VITALS: BP 112/71
[2022-01-09 02:55] VITALS: BP 112/78
[2022-01-09] MEDS: TraMADol HCL 50 MG TABLET PO PRN (02:57)
[2022-01-09] MEDS: ZOLPIDEM TARTRATE 10 MG TABLET PO PRN (02:57)
[2022-01-09 08:15] VITALS: BP 115/73
[2022-01-09] MEDS: OMEGA-3/DHA/EPA/FISH OIL 1,000 MG CAPSULE PO SCH (08:15)
[2022-01-09] MEDS: NICOTINE 21 MG/24 HOUR PATCH TD SCH (08:15)
[2022-01-09] MEDS: DOCUSATE SODIUM 250 MG CAPSULE PO SCH (08:15)
[2022-01-09] MEDS: DIVALPROEX SODIUM 500 MG ER TABLET PO SCH (08:16)
[2022-01-09] MEDS: NALTREXONE HCL 50 MG TABLET PO SCH (08:16)
== END 2022-01-09 11:29 | disposition home or self-care (01) | DRG 885 ==
LOC: B2X 12:30
PROVIDERS: ADMIT Psychiatry & Neurology Psychiatry; ATTEND Psychiatry & Neurology Psychiatry
DX: F25.9 Schizoaffective disorder, unspecified (principal); Z20.822 Contact with and (suspected) exposure to COVID-19; F17.200 Nicotine dependence, unspecified, uncomplicated; G89.29 Other chronic pain; I10 Essential (primary) hypertension; J45.909 Unspecified asthma, uncomplicated; M79.7 Fibromyalgia; Z55.9 Problems related to education and literacy, unspecified; Z59.9 Problem related to housing and economic circumstances, unspecified; Z63.9 Problem related to primary support group, unspecified; Z65.3 Problems related to other legal circumstances; Z88.0 Allergy status to penicillin; Z88.2 Allergy status to sulfonamides
CPT/HCPCS: 80053; 80061; 83036; 84439; 84443; 85025; 87081; Q9967

== ENCOUNTER 2022-04-03 15:28 | Inpatient (IN) | payer MEDICARE, MEDICAID ==
[~2022-04-03] VITALS: Ht 165.1 cm; Wt 74.4 kg
[~2022-04-03 15:28] MED LIST changes: +DULO-114 PO; +NALT50TA PO
[2022-04-03] MEDS ORDERED: LOPERAMIDE HCL 2 MG CAPSULE PO PRN (17:00)
[2022-04-03] MEDS ORDERED: MAG HYDROX/AL HYDROX/SIMETH ES 30 ML SUSPENSION UDCUP PO PRN (17:00)
[2022-04-03] MEDS ORDERED: ZOLPIDEM TARTRATE 10 MG TABLET PO PRN (17:00)
[2022-04-03] MEDS ORDERED: ACETAMINOPHEN 325 MG TABLET PO PRN (17:00)
[2022-04-03] MEDS ORDERED: PROMETHAZINE HCL 25 MG TABLET PO PRN (17:00)
[2022-04-03] MEDS ORDERED: MAGNESIUM HYDROXIDE SUSPENSION 30 ML UDCUP PO PRN (17:00)
[2022-04-03] MEDS ORDERED: PALIPERIDONE 1.5 MG ER TABLET PO PRN (17:00)
[2022-04-03] MEDS ORDERED: HydrOXYzine PAMOATE 50 MG CAPSULE PO PRN (17:00)
[2022-04-03] MEDS ORDERED: GuaiFENesin/D-METHORPHAN [SUGAR-FREE] 200-20MG/10 ML SYRUP UDCUP PO PRN (17:00)
[2022-04-03 17:21] LABS: GLUCOMETER DEV NAME(LOC) POC.BV
[2022-04-03] MEDS ORDERED: -PHARMACY VACCINE NOTE- MISC ONE (18:00)
[2022-04-03] MEDS ORDERED: INFLUENZA VIRUS VACCINE QVS 2022-23 (6MO+)/PF 60 MCG/0.5 ML SYRINGE IM. ONE (18:00)
[2022-04-03 19:35] VITALS: BP 132/89
[2022-04-03] MEDS: DIVALPROEX SODIUM 500 MG ER TABLET PO SCH (20:39)
[2022-04-03] MEDS: MELATONIN 5 MG TABLET PO SCH (20:39)
[2022-04-03] MEDS: THIAMINE 100 MG TABLET PO SCH (20:40)
[2022-04-03] MEDS: PALIPERIDONE 9 MG ER TABLET PO SCH (21:00)
[2022-04-04 06:09] VITALS: BP 110/96
[2022-04-04 07:55] LABS: BASOPHILS % (AUTO) 0.7 % (0.0-2.0); HEMATOCRIT 40.9 % (36-46); LYMPHOCYTES # (AUTO) 2.3 K/uL (1.0-4.8); LYMPHOCYTES % (AUTO) 34.4 % (22.0-44.0); MEAN CORPUSCULAR HEMOGLOBIN 30.5 pg (26.0-34.0); MEAN CORPUSCULAR HGB CONC 34.2 G/dL (31.0-37.0); MEAN CORPUSCULAR VOLUME 89 fL (80-100); MONOCYTES # (AUTO) 0.4 K/uL (0.1-1.0); MONOCYTES % (AUTO) 6.6 % (2.0-9.0); NEUTROPHILS # (AUTO) 3.6 K/uL (1.8-7.7); NEUTROPHILS % (AUTO) 54.3 % (40.0-70.0); PLATELET COUNT (AUTO) 216 K/uL (150-450); RED CELL DISTRIBUTION WIDTH 13.4 % (11.5-14.5)
[2022-04-04 08:16] LABS: HEMOGLOBIN A1C 5.2 % (3.8-5.6)
[2022-04-04 08:20] LABS: ALANINE AMINOTRANSFERASE 10 U/L (12-78); ALBUMIN 3.1 g/dL (3.4-5.0); ALKALINE PHOSPHATASE 97 U/L (46-116); ANION GAP 6 mmol/L (8-16); ASPARTATE AMINOTRANSFERASE 8 U/L (15-37); BILIRUBIN,TOTAL 0.3 mg/dL (0.1-1.0); CALCIUM, TOTAL 9.2 mg/dL (8.8-10.5); CARBON DIOXIDE 27 mmol/L (22-29); CHLORIDE 103 mmol/L (98-107); CHOL/HDL RATIO 4.3 (3.9-5.7); CHOLESTEROL 184 mg/dL (131-200); FREE T4 (FREE THYROXINE) 1.57 ng/dL (0.76-1.46); GLUCOSE,RANDOM 91 mg/dL (70-110); HDL CHOLESTEROL 43 mg/dL (40-60); LDL CHOL (CALC.) 123 mg/dL (0-130); SODIUM SERUM 136 mmol/L (136-145); THYROID STIMULATING HORMONE 0.83 uIU/mL (0.36-3.74); TRIGLYCERIDES 91 mg/dL (15-150); UREA NITROGEN, BLOOD 10 mg/dL (7-18); VALPROIC ACID 59 mcg/mL (50-100)
[2022-04-04 08:21] LABS: GLOMERULAR FILTR. RATE CALC > 60 mL/min (>60)
[2022-04-04] MEDS: NALTREXONE HCL 50 MG TABLET PO SCH (08:32)
[2022-04-04] MEDS: DULoxetine HCL 30 MG CAPSULE PO SCH (08:32)
[2022-04-04] MEDS: OMEGA-3/DHA/EPA/FISH OIL 1,000 MG CAPSULE PO SCH (08:32)
[2022-04-04] MEDS: MULTIVITAMINS WITH MINERALS, THERAPEUTIC TABLET PO SCH (08:32)
[2022-04-04] MEDS: FOLIC ACID 1 MG TABLET PO SCH (08:32)
[2022-04-04] MEDS: THIAMINE 100 MG TABLET PO SCH ×2 (08:32→16:58)
[2022-04-04 10:04] VITALS: BP 124/82
[2022-04-04] MEDS: PALIPERIDONE 9 MG ER TABLET PO SCH (20:28)
[2022-04-04] MEDS: DIVALPROEX SODIUM 500 MG ER TABLET PO SCH (20:28)
[2022-04-04] MEDS: MELATONIN 5 MG TABLET PO SCH (20:28)
[2022-04-05 02:11] VITALS: BP 127/78
[2022-04-05 08:45] VITALS: BP 115/78
[2022-04-05] MEDS: MULTIVITAMINS WITH MINERALS, THERAPEUTIC TABLET PO SCH (09:45)
[2022-04-05] MEDS: OMEGA-3/DHA/EPA/FISH OIL 1,000 MG CAPSULE PO SCH (09:45)
[2022-04-05] MEDS: FOLIC ACID 1 MG TABLET PO SCH (09:45)
[2022-04-05] MEDS: NALTREXONE HCL 50 MG TABLET PO SCH (09:46)
[2022-04-05] MEDS: DULoxetine HCL 30 MG CAPSULE PO SCH (09:46)
[2022-04-05] MEDS: THIAMINE 100 MG TABLET PO SCH ×2 (09:46→17:04)
[2022-04-05] MEDS: LORazepam 1 MG TABLET PO PRN (13:35)
[2022-04-05] MEDS: DIVALPROEX SODIUM 500 MG ER TABLET PO SCH (21:07)
[2022-04-05] MEDS: PALIPERIDONE 9 MG ER TABLET PO SCH (21:07)
[2022-04-05] MEDS: MELATONIN 5 MG TABLET PO SCH (21:07)
[2022-04-06] MEDS: DULoxetine HCL 30 MG CAPSULE PO SCH (08:49)
[2022-04-06] MEDS: THIAMINE 100 MG TABLET PO SCH ×2 (08:49→16:17)
[2022-04-06] MEDS: MULTIVITAMINS WITH MINERALS, THERAPEUTIC TABLET PO SCH (08:49)
[2022-04-06] MEDS: FOLIC ACID 1 MG TABLET PO SCH (08:49)
[2022-04-06] MEDS: NALTREXONE HCL 50 MG TABLET PO SCH (08:49)
[2022-04-06] MEDS: OMEGA-3/DHA/EPA/FISH OIL 1,000 MG CAPSULE PO SCH (08:49)
[2022-04-06 09:39] VITALS: BP 103/55
[2022-04-06] MEDS ORDERED: PALIPERIDONE PALMITATE 117 MG/0.75 ML SYRINGE IM ONE (13:30)
[2022-04-06] MEDS: DIVALPROEX SODIUM 500 MG ER TABLET PO SCH (20:16)
[2022-04-06] MEDS: MELATONIN 5 MG TABLET PO SCH (20:16)
[2022-04-06 20:38] VITALS: BP 110/73
[2022-04-07 08:03] VITALS: BP 108/69
[2022-04-07] MEDS ORDERED: FLUoxetine HCL 20 MG CAPSULE PO SCH (09:00)
[2022-04-07] MEDS: NALTREXONE HCL 50 MG TABLET PO SCH (09:31)
[2022-04-07] MEDS: MULTIVITAMINS WITH MINERALS, THERAPEUTIC TABLET PO SCH (09:31)
[2022-04-07] MEDS: THIAMINE 100 MG TABLET PO SCH ×2 (09:31→16:30)
[2022-04-07] MEDS: OMEGA-3/DHA/EPA/FISH OIL 1,000 MG CAPSULE PO SCH (09:31)
[2022-04-07] MEDS: FOLIC ACID 1 MG TABLET PO SCH (09:31)
[2022-04-07] MEDS: LORazepam 1 MG TABLET PO PRN (14:19)
[2022-04-07] MEDS ORDERED: PROZ20 PO (14:59)
[2022-04-07] MEDS ORDERED: MELA5TAB40 PO (14:59)
[2022-04-07] MEDS ORDERED: NALT50TA PO (14:59)
[2022-04-07] MEDS ORDERED: OMEG-135 PO (14:59)
[2022-04-07] MEDS ORDERED: PALI117D IM (14:59)
[2022-04-07] MEDS ORDERED: DIVA-80 PO (14:59)
[2022-05-04] MEDS ORDERED: PALIPERIDONE PALMITATE 117 MG/0.75 ML SYRINGE IM SCH (09:00)
== END 2022-04-07 19:08 | disposition home or self-care (01) | DRG 885 ==
LOC: B2X 16:56
PROVIDERS: ADMIT Psychiatry & Neurology Psychiatry; ATTEND Psychiatry & Neurology Psychiatry
DX: F25.1 Schizoaffective disorder, depressive type (principal); R45.851 Suicidal ideations; Z20.822 Contact with and (suspected) exposure to COVID-19; M79.7 Fibromyalgia; I10 Essential (primary) hypertension; J44.9 Chronic obstructive pulmonary disease, unspecified; F41.9 Anxiety disorder, unspecified; Z87.891 Personal history of nicotine dependence; Z88.8 Allergy status to other drugs, medicaments and biological substances; Z88.0 Allergy status to penicillin; Z88.2 Allergy status to sulfonamides; Z55.9 Problems related to education and literacy, unspecified; Z59.9 Problem related to housing and economic circumstances, unspecified; Z63.9 Problem related to primary support group, unspecified; Z65.3 Problems related to other legal circumstances; Z74.01 Bed confinement status
CPT/HCPCS: 80053; 80061; 80164; 83036; 84439; 84443; 85025; 86592; Q9967

== ENCOUNTER 2023-09-10 00:15 | Emergency (ER) | payer MEDICARE, MEDICAID, OTHER ==
[~2023-09-10] VITALS: Ht 162.6 cm; Wt 81.8 kg
[~2023-09-10 00:15] MED LIST changes: -DIVA-80 PO; -DULO-114 PO; +DULO20CA71 PO; +GABA-1181 PO; -MELA5TAB40 PO; -NALT50TA PO; -NALT50TA6 PO; +OLAN10TA26 PO; -OMEG-135 PO; -PALI117D IM; +TRAZ-252 PO
[2023-09-10 01:56] VITALS: BP 123/79; PULSE 77; RESP 16; TEMP 98.3
== END 2023-09-10 07:09 | disposition home or self-care (01) ==
LOC: EMS 00:16
DX: R45.1 Restlessness and agitation (principal); J45.909 Unspecified asthma, uncomplicated; F31.9 Bipolar disorder, unspecified; G43.909 Migraine, unspecified, not intractable, without status migrainosus; F20.9 Schizophrenia, unspecified; F17.210 Nicotine dependence, cigarettes, uncomplicated; Z98.890 Other specified postprocedural states; Z88.8 Allergy status to other drugs, medicaments and biological substances; Z88.0 Allergy status to penicillin; Z88.2 Allergy status to sulfonamides
CPT/HCPCS: 99285; Z7502